=== PATIENT | male | born 1955 | race Caucasian/White ===

== ENCOUNTER 2024-09-16 20:01 | Inpatient (IN) | payer BC, MEDICARE ==
[2024-09-16] MEDS ORDERED: NALOXONE 0.4 MG/ML 1 ML VIAL IV PRN (20:24)
--- NOTE | 2024-09-16 20:24 | ED ---
General Adult HPI - General Chief complaint: Abdominal Pain Stated complaint: Abd Pain Time Seen by Provider: 09/16/24 20:03 Source: patient, EMS, RN notes reviewed Mode of arrival: EMS Limitations: no limitations - History of Present Illness Initial comments: Patient is a 68-year-old male presenting to the emergency department with concerns for abdominal pain. Patient was transferred from [facility] with concerns for appendicitis. CT scan there showed appendicitis. Patient was given Zosyn. Patient states onset of symptoms was yesterday morning. Decreased appetite. Last oral intake was banana this morning. No nausea or vomiting. No fever at home. Discomfort is more right-sided more lower abdomen - Related Data Allergies Allergy/AdvReac Type Severity Reaction Status Date / Time No Known Allergies Allergy Verified 09/16/24 20:12 Review of Systems ROS Statement: Those systems with pertinent positive or pertinent negative responses have been documented in the HPI. ROS Other: All systems not noted in ROS Statement are negative. Constitutional: Reports: as per HPI Eyes: Denies: eye pain ENT: Denies: ear pain Gastrointestinal: Reports: as per HPI, abdominal pain Musculoskeletal: Denies: back pain Past Medical History Past Medical History: Hypertension Additional Past Medical History / Comment(s): gout History of Any Multi-Drug Resistant Organisms: None Reported Past Surgical History: Cholecystectomy Additional Past Surgical History / Comment(s): skull fracture repair, Past Psychological History: No Psychological Hx Reported Smoking Status: Never smoker Past Alcohol Use History: Rare Past Drug Use History: None Reported General Exam Limitations: no limitations General appearance: alert, in no apparent distress Head exam: Present: normocephalic Eye exam: Present: normal appearance Neck exam: Present: normal inspection Respiratory exam: Present: normal lung sounds bilaterally Cardiovascular Exam: Present: regular rate, normal rhythm GI/Abdominal exam: Present: soft, tenderness (Moderate tenderness right lower abdomen). Absent: distended, rebound, rigid Extremities exam: Present: normal inspection. Absent: pedal edema, calf tenderness Neurological exam: Present: alert Psychiatric exam: Present: normal affect, normal mood Skin exam: Present: normal color Course Vital Signs 09/16/24 20:03 Temperature 100.0 F H Pulse Rate 82 Respiratory 18 Rate Blood Pressure 140/84 O2 Sat by Pulse 94 L Oximetry Medical Decision Making - Medical Decision Making Was pt. sent in by a medical professional or institution (Dr., PA, MEDICAL LAB TECH INSTRUCTOR, urgent care, hospital, or long term...) When possible be specific @ -Patient was sent from [place] Did you speak to anyone other than the patient for history (EMS, parent, family, police, friend...)? What history was obtained from this source @ -Transferring physician Did you review nursing and triage notes (agree or disagree)? Why? @ -I reviewed and agree with nursing and triage notes Were old charts reviewed (outside hosp., previous admission, EMS record, old EKG, old radiological studies, urgent care reports/EKG's, long term records)? Report findings @ -Chart reviewed from [place] Differential Diagnosis (chest pain, altered mental status, abdominal pain women, abdominal pain men, vaginal bleeding, weakness, fever, dyspnea, syncope, headache, dizziness, GI bleed, back pain, seizure, CVA, palpatations, mental health, musculoskeletal)? @ -Differential Abdominal Pain Men: Appendicitis, cholecystitis, diverticulosis, ischemic bowel, pancreatitis, hepatitis, UTI, gastroenteritis, AAA, incarcerated hernia, bowel obstruction, constipation, inflammatory bowel, hepatitis, peptic ulcer disease, splenic infarction, perforated viscus, testicular torsion, this is not meant to be an all-inclusive list EKG interpreted by me (3pts min.). @ -As above X-rays interpreted by me (1pt min.). @ -None done CT interpreted by me (1pt min.). @ -None done U/S interpreted by me (1pt. min.). @ -None done What testing was considered but not performed or refused? (CT, X-rays, U/S, labs)? Why? @ -None What meds were considered but not given or refused? Why? @ -None Did you discuss the management of the patient with other professionals (professionals i.e. , SYDNEE, MEDICAL LAB TECH INSTRUCTOR, lab, RT, psych nurse, nephrology social worker, manager flight, teacher, field health officer, mental health case manager)? Give summary @ -Case discussed with Dr. Weber who will admit covering surgical call Was smoking cessation discussed for >3mins.? @ -No Was critical care preformed (if so, how long)? @ -No Were there social determinants of health that impacted care today? How? (Homelessness, low income, unemployed, alcoholism, drug addiction, transportation, low edu. Level, literacy, decrease access to med. care, mcc, rehab)? @ -No Was there de-escalation of care discussed even if they declined (Discuss DNR or withdrawal of care, Hospice)? DNR status @ -No What co-morbidities impacted this encounter? (DM, HTN, Smoking, COPD, CAD, Cancer, CVA, ARF, Chemo, Hep., AIDS, mental health diagnosis, sleep apnea, morbid obesity)? @ -None Was patient admitted / discharged? Hospital course, mention meds given and route, prescriptions, significant lab abnormalities, going to OR and other pertinent info. @ -Patient presents with abdominal discomfort, CT scan positive. Patient will be admitted to surgery. Patient updated Undiagnosed new problem with uncertain prognosis? @ -No Drug Therapy requiring intensive monitoring for toxicity (Heparin, Nitro, Insulin, Cardizem)? @ -No Were any procedures done? @ -No Diagnosis/symptom? @ -Acute appendicitis Acute, or Chronic, or Acute on Chronic? @ -Acute Uncomplicated (without systemic symptoms) or Complicated (systemic symptoms)? @ -Default Side effects of treatment? @ -No Exacerbation, Progression, or Severe Exacerbation? @ -No Poses a threat to life or bodily function? How? (Chest pain, [place], [place], pneumonia, PE, COPD, DKA, ARF, appy, cholecystitis, CVA, Diverticulitis, Homicidal, Suicidal, threat to staff... and all critical care pts) @ -No Disposition Clinical Impression: Acute appendicitis Disposition: ADMITTED IP TO THIS HOSP Is patient prescribed a controlled substance at d/c from ED?: No Referrals: Tanner Hannon MD [Primary Care Provider] - 1-2 days Time of Disposition: 20:24
[2024-09-16] MEDS: SODIUM CHLORIDE 0.9% 1,000 ML IV SCH (21:00)
[2024-09-16] MEDS: PANTOPRAZOLE 40 MG/10 ML VIAL IV SCH (21:01)
[2024-09-16] MEDS: ACETAMINOPHEN IV (For NPO) 1,000 MG in EMPTY BAG 1 BAG IVPB STA (21:03)
[2024-09-17] MEDS: PIPERACILLIN-TAZOBACTAM 3.375 GM in SODIUM CHLORIDE 0.9% 100 ML IVPB SCH (01:32)
[2024-09-17] MEDS: HYDROmorphone 0.5 MG/0.5 ML SYRINGE IVP PRN (03:31)
[2024-09-17] MEDS: HYDROmorphone 1 MG/ML 1 ML SYRINGE IVP STA (04:50)
[2024-09-17 08:35] LABS: Basophils # (A) 0.02 10*3/uL (0.00-0.10); Basophils % (A) 0.3 %; HCT 45.8 % (39.6-50.0); HGB 15.8 g/dL (13.0-17.0); Immature Platelet Fraction 2.1 % (1.1-6.1); Lymphocytes # (A) 0.27 10*3/uL (0.90-5.00); Lymphocytes % (A) 4.2 %; MCH 32.6 pg (27.0-32.0); MCHC 34.5 g/dL (32.0-37.0); MCV 94.6 fL (80.0-97.0); Mean Platelet Volume 9.3 fL (9.5-12.2); Monocytes # (A) 0.34 10*3/uL (0.20-1.00); Monocytes % (A) 5.3 %; Neutrophils # (A) 5.75 10*3/uL (1.80-7.70); Neutrophils % (A) 89.9 %; Platelet Count 148 10*3/uL (140-440); RBC 4.84 10*6/uL (4.40-5.60); RDW 12.1 % (11.5-14.5)
[2024-09-17] MEDS: HYDROmorphone 1 MG/ML 1 ML SYRINGE IVP PRN (08:40)
[2024-09-17 08:46] LABS: African American GFR (CKD) 78 (>60 ml/min/1.73 sqM); Anion Gap 10 mmol/L; Blood Urea Nitrogen 29 mg/dL (9-20); Calcium 9.1 mg/dL (8.4-10.2); Carbon Dioxide 25 mmol/L (22-30); Chloride 106 mmol/L (98-107); Glucose 124 mg/dL (74-99); Non-African American GFR(CKD) 68 (>60 ml/min/1.73 sqM); Potassium 4.2 mmol/L (3.5-5.1); Sodium 141 mmol/L (137-145)
[2024-09-17] MEDS: IV FLUID CONTINUATION 1,000 ML IV ONE (09:27)
[2024-09-17] MEDS: DEXAMETHASONE SOD PHOSPHATE 4 MG/ML 1 ML VIAL IVP STA (09:59)
[2024-09-17] MEDS: ONDANSETRON 4 MG/2 ML VIAL IVP PRN (09:59)
[2024-09-17] MEDS: HEPARIN SODIUM,PORCINE 5,000 UNIT/ML 1 ML VIAL SQ STA (10:06)
--- NOTE | 2024-09-17 10:17 | P.GSHP ---
History of Present Illness H&P Date: 09/17/24 Chief Complaint: Acute appendicitis This 68-year-old male who was re transferred from [facility]. Patient was diagnosed with acute appendicitis. Patient has complaints of right lower quadrant pain for 24 hours. Past Medical History Past Medical History: Hypertension Additional Past Medical History / Comment(s): gout History of Any Multi-Drug Resistant Organisms: None Reported Past Surgical History: Cholecystectomy Additional Past Surgical History / Comment(s): skull fracture repair, Past Anesthesia/Blood Transfusion Reactions: No Reported Reaction Past Psychological History: No Psychological Hx Reported Smoking Status: Never smoker Past Alcohol Use History: Rare Past Drug Use History: None Reported Medications and Allergies Home Medications Medication Instructions Recorded Confirmed Type Collagen Capsule(Unknown Dose) 1 cap PO HS 09/16/24 09/16/24 History Fish Oil 2700mg 2 cap PO HS 09/16/24 09/16/24 History Multivit-Min/FA/Lycopen/Lutein 1 tab PO DAILY 09/16/24 09/16/24 History [Centrum Silver Tablet] Nabumetone [Relafen] 750 mg PO BID 09/16/24 09/16/24 History Super Beta Prostate 1 tab PO HS 09/16/24 09/16/24 History Tamsulosin [Flomax] 0.4 mg PO HS 09/16/24 09/16/24 History Total Beets 2 tab PO BID 09/16/24 09/16/24 History Turmeric Root Extract [Turmeric] 500 mg PO HS 09/16/24 09/16/24 History allopurinoL [Zyloprim] 300 mg PO DAILY 09/16/24 09/16/24 History amLODIPine BES/OLMESARTAN MED 1 tab PO BID 09/16/24 09/16/24 History [amLODIPine BES/OLMESARTAN MED 5-20 mg] Allergies Allergy/AdvReac Type Severity Reaction Status Date / Time No Known Allergies Allergy Verified 09/17/24 09:29 Surgical - Exam Vital Signs Temp Pulse Resp BP Pulse Ox 100.0 F H 82 18 140/84 94 L 09/16/24 20:03 09/16/24 20:03 09/16/24 20:03 09/16/24 20:03 09/16/24 20:03 - General well developed, well nourished, no distress - Eyes PERRL - ENT normal pinna - Neck no masses - Respiratory normal expansion - Cardiovascular Rhythm: regular - Abdomen Abdomen: soft, non tender Results - Labs 09/17/24 08:21 09/17/24 08:21 Abnormal Lab Results - Last 24 Hours (Table) 09/17/24 09/17/24 Range/Units 08:21 08:21 MCH 32.6 H (27.0-32.0) pg MPV 9.3 L (9.5-12.2) fL Lymphocytes # 0.27 L (0.90-5.00) 10*3/uL Eosinophils # 0.00 L (0.04-0.35) 10*3/uL BUN 29 H (9-20) mg/dL Glucose 124 H (74-99) mg/dL Diabetes panel 09/17/24 Range/Units 08:21 Sodium 141 (137-145) mmol/L Potassium 4.2 (3.5-5.1) mmol/L Chloride 106 (98-107) mmol/L Carbon Dioxide 25 (22-30) mmol/L BUN 29 H (9-20) mg/dL Creatinine 1.11 (0.66-1.25) mg/dL Glucose 124 H (74-99) mg/dL Calcium 9.1 (8.4-10.2) mg/dL Calcium panel 09/17/24 Range/Units 08:21 Calcium 9.1 (8.4-10.2) mg/dL Pituitary panel 09/17/24 Range/Units 08:21 Sodium 141 (137-145) mmol/L Potassium 4.2 (3.5-5.1) mmol/L Chloride 106 (98-107) mmol/L Carbon Dioxide 25 (22-30) mmol/L BUN 29 H (9-20) mg/dL Creatinine 1.11 (0.66-1.25) mg/dL Glucose 124 H (74-99) mg/dL Calcium 9.1 (8.4-10.2) mg/dL Adrenal panel 09/17/24 Range/Units 08:21 Sodium 141 (137-145) mmol/L Potassium 4.2 (3.5-5.1) mmol/L Chloride 106 (98-107) mmol/L Carbon Dioxide 25 (22-30) mmol/L BUN 29 H (9-20) mg/dL Creatinine 1.11 (0.66-1.25) mg/dL Glucose 124 H (74-99) mg/dL Calcium 9.1 (8.4-10.2) mg/dL Assessment and Plan Assessment: Acute appendicitis. Patient will be scheduled for laparoscopic appendectomy
[2024-09-17] MEDS ORDERED: ePHEDrine 50 MG/ML 1 ML VIAL ONE (10:19)
[2024-09-17] MEDS ORDERED: MIDAZOLAM 2 MG/2 ML VIAL ONE (10:19)
[2024-09-17] MEDS ORDERED: SUCCINYLCHOLINE CHLORIDE 200 MG/10 ML VIAL IV ONE (10:19)
[2024-09-17] MEDS ORDERED: KETOROLAC 15 MG/ML 1 ML VIAL ONE (10:19)
[2024-09-17] MEDS ORDERED: PHENYLEPHRINE 10 MG/ML VIAL ONE (10:19)
[2024-09-17] MEDS ORDERED: NEOSTIGMINE 1 MG/ML 10 ML VIAL ONE (10:19)
[2024-09-17] MEDS ORDERED: PROPOFOL 10 MG/ML 20 ML VIAL IV ONE (10:19)
[2024-09-17] MEDS ORDERED: ROCURONIUM 10 MG/ML (5 ML VIAL) IV ONE (10:19)
[2024-09-17] MEDS ORDERED: LIDOCAINE 1% INJ 10MG/ML (20 ML MDV) ONE (10:19)
[2024-09-17] MEDS ORDERED: fentaNYL (PF) 50 MCG/ML 2 ML AMP ONE (10:19)
[2024-09-17] MEDS ORDERED: GLYCOPYRROLATE 0.2 MG/ML 2 ML VIAL ONE (10:19)
[2024-09-17] MEDS: LIDOCAINE 1%-EPI 1:100,000 20 ML VIAL SQ ONE (10:43)
--- NOTE | 2024-09-17 11:09 | P.OP ---
Date of Procedure: 09/17/24 Preoperative Diagnosis: Acute appendicitis Postoperative Diagnosis: Acute ruptured appendicitis Procedure(s) Performed: Laparoscopic appendectomy Anesthesia: CHITO Surgeon: Arturo Valle Estimated Blood Loss (ml): 5 Pathology: other (Appendix) Condition: stable Disposition: PACU Description of Procedure: The patient's placed on the operating table in the supine position. The patient received general anesthesia. The abdomen was prepped and draped in the usual sterile fashion. The skin was anesthetized 1% local Xylocaine at the trocar sites. Using an 11 blade the skin was incised at the umbilicus. The umbilicus was grasped with a Misael clamp and then a Veress needle was placed into the peritoneal cavity. Position of the Veress needle was confirmed with positive drop test. After adequate insufflation a 5 mm trocar was placed into the peritoneal cavity. The abdomen was further insufflated. And then the laparoscope was placed in the peritoneal cavity. Next a 5 mm trocar was placed in the midline suprapubic position. And then a 10 mm trocar was placed in the midline epigastric position. The patient was rotated with the right side up and in Trendelenburg. The appendix was visualized. The appendix appeared to be inflamed. There was evidence of patchy necrosis of the appendix. The appendix was grasped and then using the Harmonic scissors the mesoappendix was divided. A PDS Endoloop was then placed around the base of the appendix. And then the appendix was divided using Harmonic scissors. The appendix was placed into an Endo Catch and brought out through the 10 mm trocar site. The abdomen was irrigated. There is no bleeding seen. The trochars withdrawn. The skin was closed interrupted 3-0 Monocryl suture. Dermabond dressing was applied. Patient was sent to recovery room in stable condition.
[2024-09-17] MEDS: amLODIPine 5 MG TAB PO SCH (21:10)
[2024-09-17] MEDS: LOSARTAN 25 MG TAB PO SCH (21:10)
[2024-09-17] MEDS: TAMSULOSIN 0.4 MG CAP.ER.24H PO SCH (21:10)
[2024-09-17] MEDS: HEPARIN SODIUM,PORCINE 5,000 UNIT/ML 1 ML VIAL SQ SCH (21:11)
--- NOTE | 2024-09-17 22:42 | P.CONS ---
History of Present Illness - Reason for Consult Consult date: 09/17/24 Perforated appendicitis Requesting physician: Arturo Valle - Chief Complaint Abdominal pain x 3 days - History of Present Illness Patient is a 68-year-old male with a past medical history negative for hypertension and gout presenting to the hospital with right lower quadrant abdominal pain that the pain was going on for the last 2 to 3 days patient pain was mostly right lower quadrant area colicky and sharp in nature that has progressively got worse for the patient present to the hospital. Today associate nausea but no vomiting denies any diarrhea or constipation denies high-grade fever on presentation to the hospital he did have low-grade fever 100 F patient was not tachycardic but not hypotensive mildly hypoxic currently on 4 L nasal cannula oxygen patient did have a white count of 6.40 creatinine is 1.[address] a [address] abdominal pelvis done at [facility] that was suggestive of appendicitis for the patient was given a dose of Zosyn subsequently transferred to [facility] ER patient was taken to the OR this morning and noticed to have perforated appendicitis status post laparoscopic appendectomy postprocedure patient has been admitted to hospital infectious disease was consulted for perforated appendicitis Review of Systems Positive point and negatives has been mentioned in the HPI, complete review of systems was performed and all other systems are negative Past Medical History Past Medical History: Hypertension Additional Past Medical History / Comment(s): gout History of Any Multi-Drug Resistant Organisms: None Reported Past Surgical History: Cholecystectomy Additional Past Surgical History / Comment(s): skull fracture repair, Past Anesthesia/Blood Transfusion Reactions: No Reported Reaction Past Psychological History: No Psychological Hx Reported Smoking Status: Never smoker Past Alcohol Use History: Rare Past Drug Use History: None Reported Medications and Allergies Home Medications Medication Instructions Recorded Confirmed Type Collagen Capsule(Unknown Dose) 1 cap PO HS 09/16/24 09/16/24 History Fish Oil 2700mg 2 cap PO HS 09/16/24 09/16/24 History Multivit-Min/FA/Lycopen/Lutein 1 tab PO DAILY 09/16/24 09/16/24 History [Centrum Silver Tablet] Nabumetone [Relafen] 750 mg PO BID 09/16/24 09/16/24 History Super Beta Prostate 1 tab PO HS 09/16/24 09/16/24 History Tamsulosin [Flomax] 0.4 mg PO HS 09/16/24 09/16/24 History Total Beets 2 tab PO BID 09/16/24 09/16/24 History Turmeric Root Extract [Turmeric] 500 mg PO HS 09/16/24 09/16/24 History allopurinoL [Zyloprim] 300 mg PO DAILY 09/16/24 09/16/24 History amLODIPine BES/OLMESARTAN MED 1 tab PO BID 09/16/24 09/16/24 History [amLODIPine BES/OLMESARTAN MED 5-20 mg] Allergies Allergy/AdvReac Type Severity Reaction Status Date / Time No Known Allergies Allergy Verified 09/17/24 10:18 Physical Exam Vitals: Vital Signs Temp Pulse Pulse Pulse Pulse Resp BP 09/17/24 12:17 97.8 F 79 16 09/17/24 12:01 98 16 09/17/24 11:45 86 16 09/17/24 11:30 101 H 16 09/17/24 11:11 97.8 F 98 16 09/17/24 09:34 99.6 F 87 16 09/17/24 07:00 98.8 F 88 19 09/17/24 04:56 75 18 09/17/24 02:00 98.1 F 80 17 09/17/24 00:25 98.2 F 73 17 112/73 09/16/24 20:03 100.0 F H 82 18 140/84 BP BP Pulse Ox 09/17/24 12:17 97/50 94 L 09/17/24 12:01 94/56 94 L 09/17/24 11:45 107/69 99 09/17/24 11:30 113/76 99 09/17/24 11:11 124/82 92 L 09/17/24 09:34 112/69 92 L 09/17/24 07:00 116/70 93 L 09/17/24 04:56 123/78 09/17/24 02:00 111/70 94 L 09/17/24 00:25 98 09/16/24 20:03 94 L Intake and Output 09/16/24 09/17/24 09/17/24 22:59 06:59 14:59 Intake Total 200 Output Total 5 Balance 195 Intake: IV 200 Output: Estimated Blood Loss 5 Other: # Voids 2 Weight 140.614 kg 140.614 kg 140.614 kg GENERAL DESCRIPTION: Elderly male lying in bed, no distress. No tachypnea or accessory muscle of respiration use. HEENT: Shows Pallor , no scleral icterus. Oral mucous membrane is dry. NECK: Trachea central, no thyromegaly. LUNGS: Unlabored breathing. Clear to auscultation anteriorly. No wheeze or crackle. HEART: S1, S2, regular rate and rhythm. No loud murmur ABDOMEN: Soft, mild right-sided tenderness EXTREMITIES: No edema of feet. SKIN: No rash, no masses palpable. NEUROLOGICAL: The patient is awake, alert, oriented x3, mood and affect normal. Results CBC & Chem 7: 09/17/24 08:21 09/17/24 08:21 Labs: Abnormal Lab Results - Last 24 Hours (Table) 09/17/24 09/17/24 Range/Units 08:21 08:21 MCH 32.6 H (27.0-32.0) pg MPV 9.3 L (9.5-12.2) fL Lymphocytes # 0.27 L (0.90-5.00) 10*3/uL Eosinophils # 0.00 L (0.04-0.35) 10*3/uL BUN 29 H (9-20) mg/dL Glucose 124 H (74-99) mg/dL Assessment and Plan (1) Perforated appendicitis Current Visit: Yes Status: Acute Code(s): K35.32 - AC APPENDICITIS W PERF, LOC PERITONITIS, & GANGR, W/O ABSCS SNOMED Code(s): 62663132 (2) Peritonitis Current Visit: Yes Status: Acute Code(s): K65.9 - PERITONITIS, UNSPECIFIED SNOMED Code(s): 72981405 Plan: 1patient presented to hospital with abdominal pain and this patient has been diagnosed with acute perforated appendicitis status post laparoscopic appendectomy and will need to cover for enteric gram-negative both aerobes and anaerobes. 2patient will be treated with Zosyn 3.375 g every 8 hours Question concern answered We will follow on clinical condition and cultures to further adjust medication if needed Thank you for this consultation we will follow the patient along with you Dictation was produced using [employer] dictation software. please excuse any grammatical, word or spelling errors. Time with Patient: Greater than 30
--- NOTE | 2024-09-17 22:48 | CONS ---
CONSULTATION REASON FOR CONSULTATION: Advice regarding hypertension and gout, request by Dr. Valle. HISTORY OF PRESENT ILLNESS: This 68-year-old gentleman with a past history hypertension and gout, underwent laparoscopic appendectomy for acute ruptured appendicitis by Dr. Valle. There is no history of fever or rigors. No headache, loss of consciousness or seizures. The patient has some postoperative cough at this time. PAST MEDICAL HISTORY: Hypertension, gout. Rest of the history and chart is also reviewed. HOME MEDICATIONS: Reviewed include amlodipine. Doses and rest of medications reviewed. ALLERGIES: None. FAMILY HISTORY: No history of heart disease or strokes in the family. SOCIAL HISTORY: No history of smoking. REVIEW OF SYSTEMS: Could not be taken as the patient is slightly drowsy. PHYSICAL EXAMINATION: VITAL SIGNS: Pulse 75, blood pressure 160/70, and respirations 20. HEENT: Conjunctivae normal. NECK: No jugular venous distention. CARDIOVASCULAR: S1, S2. RESPIRATIONS: Breath sounds diminished at the bases. A few scattered rhonchi. ABDOMEN: Soft, obese, status post surgery. nervous system: No focal deficit. LABORATORY DATA: White count 6.4. Rest of the labs are noted. ASSESSMENT: 1. Status post laparoscopic appendectomy for acute ruptured appendicitis. 2. History of hypertension. 3. History of gout. 4. History of cholecystectomy. RECOMMENDATIONS: This 68-year-old gentleman presented with multiple complex medical issues. We will monitor the patient closely, resume the home medications. Monitor blood pressure closely, broad-spectrum IV antibiotics. DVT prophylaxis. We will monitor the patient closely. The patient was transferred from [facility]. I would recommend chest x-ray baseline. Incentive spirometry. See orders for details. MMODL / IJN: [id number] /
--- NOTE | 2024-09-18 07:47 | XR ---
EXAMINATION TYPE: XR chest 1V portable DATE OF EXAM: 09/18/2024 6:40 AM COMPARISON: None. CLINICAL INDICATION: Male, 69 years old with history of chf, TECHNIQUE: XR chest 1V portable view(s) obtained. FINDINGS: The heart size is enlarged. The pulmonary vasculature is normal. Minimal right pleural effusion may be present. Lungs otherwise appear clear. IMPRESSION: 1. Cardiomegaly. 2. Small right pleural effusion [facility], , 09/18/2024 7:44 AM
[2024-09-18] MEDS: allopurinoL 300 MG TAB PO SCH (08:26)
[2024-09-18] MEDS: MELOXICAM 7.5 MG TAB PO SCH (08:27)
[2024-09-18 08:46] LABS: BUN/Creat Ratio 25.18 Ratio (12.00-20.00); Blood Urea Nitrogen 27.7 mg/dL (9.0-27.0); Carbon Dioxide 22.2 mmol/L (21.6-31.8); Chloride 104 mmol/L (96-109); Glucose 123 mg/dL (70-110); Potassium 4.3 mmol/L (3.5-5.5); Sodium 138 mmol/L (135-145)
[2024-09-18 08:47] LABS: ALT 57 U/L (10-49); AST 38 U/L (14-35); Albumin 3.6 g/dL (3.8-4.9); Alkaline Phosphatase 62 U/L (41-126); Calcium 8.8 mg/dL (8.7-10.3); Globulin 2.4 g/dL (1.6-3.3); Total Bilirubin 2.3 mg/dL (0.3-1.2)
[2024-09-18] MEDS ORDERED: IPRATROPIUM-ALBUTEROL 3 ML NEB INHALATION PRN (08:59)
[2024-09-18] MEDS: HYDROcodone/APAP 5-325MG 1 EACH TAB PO PRN (11:00)
[2024-09-18 11:46] LABS: HCT 41.1 % (39.6-50.0); MCH 32.6 pg (27.0-32.0); MCHC 34.1 g/dL (32.0-37.0); MCV 95.8 fL (80.0-97.0); Mean Platelet Volume 10.3 fL (9.5-12.2); Platelet Count 171 10*3/uL (140-440); RBC 4.29 10*6/uL (4.40-5.60); RDW 12.1 % (11.5-14.5); WBC 9.15 10*3/uL (4.50-10.00)
[2024-09-18 12:43] LABS: Lymphocytes # (M) 0.46 k/uL (1.0-4.8); Monocytes # (M) 0.37 k/uL (0-1.0); Neutrophils # (M) 8.33 k/uL (1.3-7.7); Neutrophils % (M) 91 %; Nucleated Red Blood Cells 0 /100 WBC (0-0); Total Cells Counted 100
--- NOTE | 2024-09-18 13:28 | P.PN ---
Subjective Progress Note Date: 09/18/24 SURGICAL PROGRESS NOTE CHIEF COMPLAINT: Ruptured appendicitis HISTORY OF PRESENT ILLNESS: Patient is postop day #1 status post laparoscopic appendectomy. Patient does report abdominal pain. Denies any nausea or vomiting. Denies any flatus. Patient reports urinating without difficulty. Afebrile. He is on 4 L of oxygen. WBC is 9.15 total bilirubin is 2.3 AST 38 ALT 57 alk phos 62 PHYSICAL EXAM: VITAL SIGNS: Reviewed. GENERAL: Well-developed in no acute distress. ABDOMEN: Soft. Mildly distended. Tender at incision sites. Incision sites clean dry and intact. NEUROLOGIC: Alert and oriented. Cranial nerves II through XII grossly intact. ASSESSMENT: 1. Acute ruptured appendicitis 2. Atelectasis 3. Elevated total bilirubin PLAN: - Continue IV antibiotics - Continue clear liquid diet - Continue pain management - Encourage patient to ambulate - Encourage patient to use incentive spirometer - Repeat labs in a.m. - DVT prophylaxis subcu heparin Physician Tooling Supervisor note has been reviewed by physician. Signing provider agrees with the documented findings, assessment, and plan of care. Objective - Vital Signs Vital signs: Vital Signs Temp 98.5 F 09/18/24 07:00 Pulse 67 09/18/24 07:00 Resp 15 09/18/24 07:00 BP 115/68 09/18/24 07:00 Pulse Ox 95 09/18/24 07:00 FiO2 Intake & Output 09/17/24 09/18/24 09/18/24 18:59 06:59 18:59 Intake Total 440 540 Output Total 205 535 40 Balance 235 5 -40 Weight 140.614 kg Intake: IV 200 Oral 240 540 Output: Drainage 35 40 Abdomen 35 40 Urine 200 500 Estimated Blood Loss 5 Other: # Voids 3 - Labs CBC & Chem 7: 09/18/24 11:01 09/18/24 04:43 Labs: Abnormal Lab Results - Last 24 Hours (Table) 09/18/24 09/18/24 Range/Units 04:43 11:01 RBC 4.29 L (4.40-5.60) 10*6/uL MCH 32.6 H (27.0-32.0) pg Neutrophils # (Manual) 8.33 H (1.3-7.7) k/uL Lymphocytes # (Manual) 0.46 L (1.0-4.8) k/uL BUN 27.7 H (9.0-27.0) mg/dL BUN/Creatinine Ratio 25.18 H (12.00-20.00) Ratio Glucose 123 H (70-110) mg/dL Total Bilirubin 2.3 H (0.3-1.2) mg/dL AST 38 H (14-35) U/L ALT 57 H (10-49) U/L Total Protein 6.0 L (6.2-8.2) g/dL Albumin 3.6 L (3.8-4.9) g/dL Albumin/Globulin Ratio 1.50 L (1.60-3.17) Ratio
[2024-09-18] MEDS: IPRATROPIUM-ALBUTEROL 3 ML NEB INHALATION SCH (15:56)
[2024-09-18] MEDS ORDERED: DOCUSATE 100 MG CAP PO PRN (20:23)
[2024-09-18] MEDS: DOCUSATE 100 MG CAP PO SCH (21:46)
--- NOTE | 2024-09-19 06:06 | PN ---
PROGRESS NOTE DATE OF SERVICE: 09/18/2024 SUBJECTIVE: This is a 69-year-old gentleman admitted after laparoscopic appendectomy for acute appendicitis, ruptured. It is being closely monitored at this time. The patient is on broad spectrum IV antibiotics. The chest x-ray which I reviewed personally showed some atelectasis. OBJECTIVE: VITAL SIGNS: On exam, pulse is 67, blood pressure 150/60, respirations 15. HEENT: Conjunctivae normal. CARDIOVASCULAR: S1 and S2. RESPIRATIONS: Breath sounds diminished at bases. No rhonchi, no crackles. ABDOMEN: Soft. LABS: Reviewed. ASSESSMENT: 1. Status post laparoscopic appendectomy for acute ruptured appendicitis. 2. Bilateral atelectasis, right more the left. 3. Hypertension. 4. History of gout. 5. History of cholecystectomy. 6. Elevated AST and ALT. RECOMMENDATIONS: I recommend to continue current medications, symptomatic management. Otherwise, I recommended continue the broad-spectrum IV antibiotics. Add bronchodilators. Repeat labs in the morning. Incentive spirometry. DVT prophylaxis. We will follow the patient closely with you. MMODL / IJN: [id number] /
[2024-09-19 08:37] LABS: ALT 40 U/L (10-49); AST 24 U/L (14-35); Albumin 3.2 g/dL (3.8-4.9); Albumin/Globulin Ratio 1.39 Ratio (1.60-3.17); Alkaline Phosphatase 57 U/L (41-126); BUN/Creat Ratio 24.57 Ratio (12.00-20.00); Blood Urea Nitrogen 34.4 mg/dL (9.0-27.0); Calcium 8.7 mg/dL (8.7-10.3); Carbon Dioxide 26.8 mmol/L (21.6-31.8); Chloride 101 mmol/L (96-109); Globulin 2.3 g/dL (1.6-3.3); Glucose 127 mg/dL (70-110); Potassium 4.3 mmol/L (3.5-5.5); Sodium 137 mmol/L (135-145); Total Bilirubin 1.4 mg/dL (0.3-1.2); Total Protein 5.5 g/dL (6.2-8.2)
[2024-09-19 08:52] LABS: Basophils # (A) 0.01 X 10*3/uL (0.00-0.10); Basophils % (A) 0.1 %; Eosinophils # (A) 0.11 X 10*3/uL (0.04-0.35); Eosinophils % (A) 1.1 %; HCT 41.6 % (39.6-50.0); HGB 13.8 g/dL (13.0-17.0); Lymphocytes # (A) 0.92 X 10*3/uL (0.90-5.00); Lymphocytes % (A) 9.2 %; MCH 31.9 pg (27.0-32.0); MCHC 33.2 g/dL (32.0-37.0); MCV 96.3 FL (80.0-97.0); Mean Platelet Volume 10.5 FL (9.5-12.2); Monocytes # (A) 0.63 X 10*3/uL (0.20-1.00); Monocytes % (A) 6.3 %; NRBC Per 100 WBC 0 X 10*3/uL (0.00-0.01); Neutrophils # (A) 8.25 X 10*3/uL (1.80-7.70); Platelet Count 178 X 10*3/uL (140-440); RBC 4.32 X 10*6/uL (4.40-5.60); RDW 12.1 % (11.5-14.5); WBC 9.95 X 10*3/uL (4.50-10.00)
--- NOTE | 2024-09-19 12:43 | P.PN ---
Subjective Progress Note Date: 09/18/24 Principal diagnosis: Reason for follow-up is perforated appendicitis/peritonitis Patient is a 68-year-old male with a past medical history negative for hypertension and gout presenting to the hospital with right lower quadrant abdominal pain patient has been diagnosed with perforated appendicitis status post laparoscopic appendectomy. On today's evaluation that is 09/18/2024,the patient denies any fever or any chills, patient is breathing comfortably on 2 L nasal oxygen r, the patient denies chest pain shortness of breath and no significant cough, patient denies nausea vomiting and abdominal pain is currently controlled Patient did have white count 9.15 Objective - Vital Signs Vital signs: Vital Signs Temp 99.2 F 09/18/24 14:32 Pulse 79 09/18/24 14:32 Resp 17 09/18/24 14:32 BP 103/58 09/18/24 14:32 Pulse Ox 93 L 09/18/24 14:32 FiO2 Intake & Output 09/17/24 09/18/24 09/18/24 18:59 06:59 18:59 Intake Total 440 540 Output Total 205 535 40 Balance 235 5 -40 Weight 140.614 kg Intake: IV 200 Oral 240 540 Output: Drainage 35 40 Abdomen 35 40 Urine 200 500 Estimated Blood Loss 5 Other: # Voids 3 4 - Exam GENERAL DESCRIPTION: An elderly male up in the chair in no distress RESPIRATORY SYSTEM: Unlabored breathing , decreased breath sounds at bases HEART: S1 S2 regular rate and rhythm , ABDOMEN: Soft , mild distention no tenderness EXTREMITIES: No edema feet - Labs CBC & Chem 7: 09/19/24 05:20 09/19/24 05:20 Labs: Abnormal Lab Results - Last 24 Hours (Table) 09/18/24 09/18/24 Range/Units 04:43 11:01 RBC 4.29 L (4.40-5.60) 10*6/uL MCH 32.6 H (27.0-32.0) pg Neutrophils # (Manual) 8.33 H (1.3-7.7) k/uL Lymphocytes # (Manual) 0.46 L (1.0-4.8) k/uL BUN 27.7 H (9.0-27.0) mg/dL BUN/Creatinine Ratio 25.18 H (12.00-20.00) Ratio Glucose 123 H (70-110) mg/dL Total Bilirubin 2.3 H (0.3-1.2) mg/dL AST 38 H (14-35) U/L ALT 57 H (10-49) U/L Total Protein 6.0 L (6.2-8.2) g/dL Albumin 3.6 L (3.8-4.9) g/dL Albumin/Globulin Ratio 1.50 L (1.60-3.17) Ratio Assessment and Plan (1) Perforated appendicitis Current Visit: Yes Status: Acute Code(s): K35.32 - AC APPENDICITIS W PERF, LOC PERITONITIS, & GANGR, W/O ABSCS SNOMED Code(s): 51365075 (2) Peritonitis Current Visit: Yes Status: Acute Code(s): K65.9 - PERITONITIS, UNSPECIFIED SNOMED Code(s): 83756577 Plan: 1patient presented to hospital with abdominal pain and this patient has been diagnosed with acute perforated appendicitis status post laparoscopic appendectomy and will need to cover for enteric gram-negative both aerobes and anaerobes. 2patient is afebrile white count has been normal patient will be treated with Zosyn 3.375 g every 8 hours while patient encouraged to use his incentive spirometry to decrease risk of developing pneumonia and need for supplemental oxygen Family at the bedside question concern answered Dictation was produced using [employer] dictation software. please excuse any grammatical, word or spelling errors. Time with Patient: Less than 30
--- NOTE | 2024-09-19 12:44 | P.PN ---
Subjective Progress Note Date: 09/19/24 SURGICAL PROGRESS NOTE CHIEF COMPLAINT: Ruptured appendicitis HISTORY OF PRESENT ILLNESS: Patient is postop day #2 status post laparoscopic appendectomy. Patient reports he is feeling better. Pain is controlled. He did have a bowel movements and having flatus. He has been up and ambulating. Afebrile. WBC 9.95 total bilirubin is down to 1.4 LFTs normalized. PARMJIT drain 40ml serosanguineous output PHYSICAL EXAM: VITAL SIGNS: Reviewed. GENERAL: Well-developed in no acute distress. ABDOMEN: Soft. Mildly distended. Incision sites clean dry and intact. NEUROLOGIC: Alert and oriented. Cranial nerves II through XII grossly intact. ASSESSMENT: 1. Acute ruptured appendicitis 2. Atelectasis PLAN: -Advance diet to regular - Continue IV antibiotics - Continue pain management - Encourage patient to ambulate - Encourage patient to use incentive spirometer -Anticipate discharge in a.m. - DVT prophylaxis subcu heparin Physician Neonatal Icu Coordinator note has been reviewed by physician. Signing provider agrees with the documented findings, assessment, and plan of care. Objective - Vital Signs Vital signs: Vital Signs Temp 99.2 F 09/19/24 07:10 Pulse 80 09/19/24 10:13 Resp 19 09/19/24 07:10 BP 119/67 09/19/24 07:10 Pulse Ox 94 L 09/19/24 07:10 FiO2 Intake & Output 09/18/24 09/19/24 09/19/24 18:59 06:59 18:59 Intake Total 980 480 Output Total 40 360 Balance -40 620 480 Intake: IV 480 Sodium Chloride 0.9% 1, 480 000 ml @ 40 mls/hr IV . Q24H [facility] Rx#:[id number] Oral 500 480 Output: Drainage 40 60 Abdomen 40 60 Urine 300 Other: Voiding Method Toilet Toilet Urinal Urinal # Voids 4 1 - Labs CBC & Chem 7: 09/19/24 05:20 09/19/24 05:20 Labs: Abnormal Lab Results - Last 24 Hours (Table) 09/18/24 09/19/24 09/19/24 Range/Units 11:01 05:20 05:20 RBC 4.32 L (4.40-5.60) X 10*6/uL Neutrophils # 8.25 H (1.80-7.70) X 10*3/uL Neutrophils # (Manual) 8.33 H (1.3-7.7) k/uL Lymphocytes # (Manual) 0.46 L (1.0-4.8) k/uL BUN 34.4 H (9.0-27.0) mg/dL Est GFR (CKD-EPI) 54 L (>=60) BUN/Creatinine Ratio 24.57 H (12.00-20.00) Ratio Glucose 127 H (70-110) mg/dL Total Bilirubin 1.4 H (0.3-1.2) mg/dL Total Protein 5.5 L (6.2-8.2) g/dL Albumin 3.2 L (3.8-4.9) g/dL Albumin/Globulin Ratio 1.39 L (1.60-3.17) Ratio
--- NOTE | 2024-09-19 12:44 | P.PN ---
Subjective Progress Note Date: 09/19/24 Principal diagnosis: Reason for follow-up is perforated appendicitis/peritonitis Patient is a 68-year-old male with a past medical history negative for hypertension and gout presenting to the hospital with right lower quadrant abdominal pain patient has been diagnosed with perforated appendicitis status post laparoscopic appendectomy. On today's evaluation that is 09/19/2024,the patient remains to be afebrile, patient is on 2 L nasal cannula supplemental oxygen and denies any shortness of breath no chest pain or cough.Patient denies having any nausea or vomiting, abdominal pain is currently controlled did have small bowel movement. Patient white count is 9.95 creatinine is 1.4 Objective - Vital Signs Vital signs: Vital Signs Temp 99.2 F 09/19/24 07:10 Pulse 80 09/19/24 10:13 Resp 19 09/19/24 07:10 BP 119/67 09/19/24 07:10 Pulse Ox 94 L 09/19/24 07:10 FiO2 Intake & Output 09/18/24 09/19/24 09/19/24 18:59 06:59 18:59 Intake Total 980 Output Total 40 360 Balance -40 620 Intake: IV 480 Sodium Chloride 0.9% 1, 480 000 ml @ 40 mls/hr IV . Q24H [facility] Rx#:[id number] Oral 500 Output: Drainage 40 60 Abdomen 40 60 Urine 300 Other: Voiding Method Toilet Toilet Urinal Urinal # Voids 4 1 - Exam GENERAL DESCRIPTION: An elderly male up in the chair in no distress RESPIRATORY SYSTEM: Unlabored breathing , decreased breath sounds at bases HEART: S1 S2 regular rate and rhythm , ABDOMEN: Soft , mild distention no tenderness EXTREMITIES: No edema feet - Labs CBC & Chem 7: 09/19/24 05:20 09/19/24 05:20 Labs: Abnormal Lab Results - Last 24 Hours (Table) 09/18/24 09/19/24 09/19/24 Range/Units 11:01 05:20 05:20 RBC 4.29 L 4.32 L (4.40-5.60) 10*6/uL MCH 32.6 H (27.0-32.0) pg Neutrophils # 8.25 H (1.80-7.70) X 10*3/uL Neutrophils # (Manual) 8.33 H (1.3-7.7) k/uL Lymphocytes # (Manual) 0.46 L (1.0-4.8) k/uL BUN 34.4 H (9.0-27.0) mg/dL Est GFR (CKD-EPI) 54 L (>=60) BUN/Creatinine Ratio 24.57 H (12.00-20.00) Ratio Glucose 127 H (70-110) mg/dL Total Bilirubin 1.4 H (0.3-1.2) mg/dL Total Protein 5.5 L (6.2-8.2) g/dL Albumin 3.2 L (3.8-4.9) g/dL Albumin/Globulin Ratio 1.39 L (1.60-3.17) Ratio Assessment and Plan (1) Perforated appendicitis Current Visit: Yes Status: Acute Code(s): K35.32 - AC APPENDICITIS W PERF, LOC PERITONITIS, & GANGR, W/O ABSCS SNOMED Code(s): 85213485 (2) Peritonitis Current Visit: Yes Status: Acute Code(s): K65.9 - PERITONITIS, UNSPECIFIED SNOMED Code(s): 15239953 Plan: 1patient presented to hospital with abdominal pain and this patient has been diagnosed with acute perforated appendicitis status post laparoscopic appendectomy and will need to cover for enteric gram-negative both aerobes and anaerobes. 2patient is afebrile white count has been normal 3patient will be treated with Zosyn 3.375 g every 8 hours while inpatient and will transition to oral antibiotics on discharge Family at the bedside question concern answered Dictation was produced using [employer] dictation software. please excuse any grammatical, word or spelling errors. Time with Patient: Less than 30
[2024-09-19 12:45] VITALS: BMI 39.8
--- NOTE | 2024-09-19 14:30 | PN ---
PROGRESS NOTE DATE OF SERVICE: 09/19/2024 SUBJECTIVE: This 69-year-old gentleman who was admitted after laparoscopic appendectomy, closely monitored. No chest pain. No palpitation. OBJECTIVE: VITAL SIGNS: Pulse is 78, blood pressure 119/67, and respiration 19. CHEST: A few scattered rhonchi. CARDIOVASCULAR: S1 and S2. ABDOMEN: Soft, status post surgery. LABORATORY DATA: Reviewed. ASSESSMENT: 1. Status post laparoscopic appendectomy for acute ruptured appendicitis. 2. Bilateral atelectasis, right more the left. 3. Hypertension. 4. History of gout. 5. History of cholecystectomy. 6. History of elevated AST and ALT. RECOMMENDATIONS: Recommend to continue current medications and symptomatic treatment. The white count is normal. Continue the IV antibiotics. LFTs also improving. Follow with Surgery. Prognosis guarded. Further recommendations to follow. MMRACHELLL / IJN: [id number] /
[2024-09-20 08:49] LABS: Basophils # (A) 0.02 X 10*3/uL (0.00-0.10); Basophils % (A) 0.2 %; Eosinophils # (A) 0.19 X 10*3/uL (0.04-0.35); HCT 41.3 % (39.6-50.0); HGB 14.1 g/dL (13.0-17.0); Lymphocytes # (A) 0.92 X 10*3/uL (0.90-5.00); Lymphocytes % (A) 9.5 %; MCH 31.9 pg (27.0-32.0); MCHC 34.1 g/dL (32.0-37.0); MCV 93.4 FL (80.0-97.0); Mean Platelet Volume 10.5 FL (9.5-12.2); Monocytes % (A) 7.2 %; NRBC Per 100 WBC 0 X 10*3/uL (0.00-0.01); Neutrophils # (A) 7.79 X 10*3/uL (1.80-7.70); Neutrophils % (A) 80.6 %; Platelet Count 214 X 10*3/uL (140-440); RBC 4.42 X 10*6/uL (4.40-5.60); WBC 9.67 X 10*3/uL (4.50-10.00)
[2024-09-20 09:13] LABS: ALT 35 U/L (10-49); AST 23 U/L (14-35); Albumin 3.2 g/dL (3.8-4.9); Albumin/Globulin Ratio 1.28 Ratio (1.60-3.17); Alkaline Phosphatase 59 U/L (41-126); BUN/Creat Ratio 23.08 Ratio (12.00-20.00); Blood Urea Nitrogen 27.7 mg/dL (9.0-27.0); Calcium 8.6 mg/dL (8.7-10.3); Carbon Dioxide 22.5 mmol/L (21.6-31.8); Chloride 104 mmol/L (96-109); Globulin 2.5 g/dL (1.6-3.3); Glucose 160 mg/dL (70-110); Sodium 139 mmol/L (135-145); Total Bilirubin 1.1 mg/dL (0.3-1.2); Total Protein 5.7 g/dL (6.2-8.2)
--- NOTE | 2024-09-20 10:21 | P.PN ---
Subjective Progress Note Date: 09/20/24 Patient has complaints of nausea. He feels slightly bloated to. On exam vital signs were stable. Abdomen soft. There is mild abdominal distention. Status post laparoscopic appendectomy today for acute ruptured appendicitis. Patient will continue receive IV antibiotics. He mostly clear has postoperative ileus. Objective - Vital Signs Vital signs: Vital Signs Temp 98.3 F 09/20/24 07:10 Pulse 85 09/20/24 09:50 Resp 18 09/20/24 07:10 BP 121/79 09/20/24 07:10 Pulse Ox 93 L 09/20/24 07:10 FiO2 Intake & Output 09/19/24 09/20/24 09/20/24 18:59 06:59 18:59 Intake Total 720 Output Total 75 Balance 720 -75 Weight 140.614 kg Intake: Oral 720 Output: Drainage 75 Abdomen 75 Other: Voiding Method Toilet Toilet Urinal Urinal # Voids 3 1 # Bowel Movements 2 - Labs CBC & Chem 7: 09/20/24 05:50 09/20/24 05:50 Labs: Abnormal Lab Results - Last 24 Hours (Table) 09/20/24 09/20/24 Range/Units 05:50 05:50 Immature Gran # 0.05 H (0.00-0.04) X 10*3/uL Neutrophils # 7.79 H (1.80-7.70) X 10*3/uL Anion Gap 12.50 H (4.00-12.00) mmol/L BUN 27.7 H (9.0-27.0) mg/dL BUN/Creatinine Ratio 23.08 H (12.00-20.00) Ratio Glucose 160 H (70-110) mg/dL Calcium 8.6 L (8.7-10.3) mg/dL Total Protein 5.7 L (6.2-8.2) g/dL Albumin 3.2 L (3.8-4.9) g/dL Albumin/Globulin Ratio 1.28 L (1.60-3.17) Ratio
--- NOTE | 2024-09-20 14:55 | XR ---
EXAMINATION TYPE: XR abdomen 1V DATE OF EXAM: 09/20/2024 2:48 PM COMPARISON: None. CLINICAL INDICATION: Male, 69 years old with history of Abdominal pain, distention, hypoactive bowel sound, TECHNIQUE: Supine, upright, and left side down lateral decubitus views of the abdomen are obtained. FINDINGS: Mildly distended left upper quadrant small bowel loop could reflect sentinel loop. Right up per quadrant catheter device noted. Gas and fecal material is seen in non-distended colon. There is no visceromegaly, pneumoperitoneum, or abnormal calcification appreciated. The lung bases are clear and the osseous structures are intact. IMPRESSION: Mildly distended left upper quadrant small bowel loop could reflect sentinel loop. [facility], , 09/20/2024 2:52 PM
--- NOTE | 2024-09-20 16:10 | P.PN ---
Subjective Progress Note Date: 09/20/24 Principal diagnosis: Reason for follow-up is perforated appendicitis/peritonitis Patient is a 68-year-old male with a past medical history negative for hypertension and gout presenting to the hospital with right lower quadrant abdominal pain patient has been diagnosed with perforated appendicitis status post laparoscopic appendectomy. On today's evaluation that is 09/20/2024, the patient continues to be afebrile, the patient is on room air and breathing comfortably, the Pt denies having any chest pain or cough, the patient has been complaining some abdominal distention but denies any nausea vomiting did have a large BM which was watery. Patient white count is 9.67 creatinine is 1.2 Objective - Vital Signs Vital signs: Vital Signs Temp 98.3 F 09/20/24 07:10 Pulse 85 09/20/24 09:50 Resp 18 09/20/24 07:10 BP 121/79 09/20/24 07:10 Pulse Ox 93 L 09/20/24 07:10 FiO2 Intake & Output 09/19/24 09/20/24 09/20/24 18:59 06:59 18:59 Intake Total 720 190 Output Total 75 Balance 720 -75 190 Weight 140.614 kg Intake: Oral 720 190 Output: Drainage 75 Abdomen 75 Other: Voiding Method Toilet Toilet Toilet Urinal Urinal Urinal # Voids 3 1 # Bowel Movements 2 - Exam GENERAL DESCRIPTION: An elderly male up in the chair in no distress RESPIRATORY SYSTEM: Unlabored breathing , decreased breath sounds at bases HEART: S1 S2 regular rate and rhythm , ABDOMEN: Soft , mild distention no tenderness EXTREMITIES: No edema feet - Labs CBC & Chem 7: 09/20/24 05:50 09/20/24 05:50 Labs: Abnormal Lab Results - Last 24 Hours (Table) 09/20/24 09/20/24 Range/Units 05:50 05:50 Immature Gran # 0.05 H (0.00-0.04) X 10*3/uL Neutrophils # 7.79 H (1.80-7.70) X 10*3/uL Anion Gap 12.50 H (4.00-12.00) mmol/L BUN 27.7 H (9.0-27.0) mg/dL BUN/Creatinine Ratio 23.08 H (12.00-20.00) Ratio Glucose 160 H (70-110) mg/dL Calcium 8.6 L (8.7-10.3) mg/dL Total Protein 5.7 L (6.2-8.2) g/dL Albumin 3.2 L (3.8-4.9) g/dL Albumin/Globulin Ratio 1.28 L (1.60-3.17) Ratio Assessment and Plan (1) Perforated appendicitis Current Visit: Yes Status: Acute Code(s): K35.32 - AC APPENDICITIS W PERF, LOC PERITONITIS, & GANGR, W/O ABSCS SNOMED Code(s): 42420985 (2) Peritonitis Current Visit: Yes Status: Acute Code(s): K65.9 - PERITONITIS, UNSPECIFIED SNOMED Code(s): 70631919 Plan: 1patient presented to hospital with abdominal pain and this patient has been diagnosed with acute perforated appendicitis status post laparoscopic appendectomy and will need to cover for enteric gram-negative both aerobes and anaerobes. 2patient is afebrile white count has been normal 3patient with currently concern for possible postop ileus being monitored closely by surgery and will continue to treat with Zosyn 3.375 g every 8 hours while inpatient and monitor clinical course closely Dictation was produced using [employer] dictation software. please excuse any grammatical, word or spelling errors. Time with Patient: Less than 30
--- NOTE | 2024-09-20 17:25 | CDI ---
Documentation Clarification Form Date: 09/20/2024 05:02:11 PM From: Dorothy Guardado RN CCDS Phone: [phone] Admit Date: 09/16/2024 08:28:00 PM Patient Name: Mark Nelson Visit Number: [id number] Discharge Date: ATTENTION: The Clinical Documentation Specialists (CDI) and [facility] Coding Staff appreciate your assistance in clarifying documentation. Please respond to the clarification below the line at the bottom and electronically sign. The CDI & [facility] Coding staff will review the response and follow-up if needed. Please note: Queries are made part of the Legal Health Record. If you have any questions, please contact the author of this message via ITS. Doctor: Arturo Valle Postoperative ileus is documented 09/20, Surgical note and the patient had Laparoscopic Appendicitis, 09/17.. Additional clarification is requested regarding the relationship, if any, that exists between the diagnosis and the procedure. History/Risk Factors: Patients Admitting Diagnosis: Acute appendicitis Post-Operative Diagnosis: Acute ruptured appendicitis Procedure performed: Laparoscopic appendectomy Clinical Indicators: 09/20 Abd Pelvis Xray: Mildly distended left upper quadrant small bowel loop could reflect sentinel loop. 09/17 ID consult: Peritonitis: patient presented to hospital with abdominal pain and this patient has been diagnosed with acute perforated appendicitis status post laparoscopic appendectomy and will need to cover for enteric gram-negative both aerobes and anaerobes. 09/18, SX note: Acute ruptured appendicitis 09/19, SX note: Abdomen Soft mildly distended. 09/20 SX note: Complaints of nausea. He feels slightly bloated. Treatment: Encouraged to ambulate, 09/18 09/20 Colace po daily, 09/20 Senokot po bid. 09/20 abdominal xray. What relationship, if any, exists between the diagnosis of Postoperative ileus and the procedure: [ ] Postoperative ileus is not clinically significant and not a complication [ xx ] Postoperative ileus is clinically significant and not a complication [ ] Postoperative ileus is clinically significant and a complication [ ] Other please specify ____ [ ] Unable to determine (Template Last Revised: April 2024) MTDD
[2024-09-20] MEDS: SENNOSIDES 8.6 MG TAB PO SCH (20:13)
[2024-09-21 09:54] LABS: Basophils # (A) 0.04 X 10*3/uL (0.00-0.10); Basophils % (A) 0.5 %; Eosinophils # (A) 0.23 X 10*3/uL (0.04-0.35); Eosinophils % (A) 2.8 %; HCT 39.4 % (39.6-50.0); HGB 13.2 g/dL (13.0-17.0); Lymphocytes # (A) 1.27 X 10*3/uL (0.90-5.00); Lymphocytes % (A) 15.6 %; MCH 31.5 pg (27.0-32.0); MCHC 33.5 g/dL (32.0-37.0); Mean Platelet Volume 10.4 FL (9.5-12.2); Monocytes % (A) 8.6 %; NRBC Per 100 WBC 0 X 10*3/uL (0.00-0.01); Neutrophils # (A) 5.83 X 10*3/uL (1.80-7.70); Neutrophils % (A) 71.6 %; Platelet Count 220 X 10*3/uL (140-440); RBC 4.19 X 10*6/uL (4.40-5.60); RDW 12.2 % (11.5-14.5); WBC 8.14 X 10*3/uL (4.50-10.00)
--- NOTE | 2024-09-21 10:10 | P.PN ---
Subjective Progress Note Date: 09/21/24 Patient feels better today. He had several bowel movements. On exam vital signs appear stable. Abdomen soft. Resolving ileus status post laparoscopic appendectomy for acute perforated appendicitis. Patient continue receive supportive care. Objective - Vital Signs Vital signs: Vital Signs Temp 98.9 F 09/21/24 07:36 Pulse 84 09/21/24 07:51 Resp 16 09/21/24 07:36 BP 130/73 09/21/24 07:36 Pulse Ox 93 L 09/21/24 07:36 FiO2 Intake & Output 09/20/24 09/21/24 09/21/24 18:59 06:59 18:59 Intake Total 190 Output Total 30 60 Balance 190 -30 -60 Intake: Oral 190 Output: Drainage 30 60 Abdomen 30 60 Other: Voiding Method Toilet Toilet Urinal Urinal # Voids 3 2 # Bowel Movements 2 - Labs CBC & Chem 7: 09/21/24 03:35 09/20/24 05:50 Labs: Abnormal Lab Results - Last 24 Hours (Table) 09/21/24 Range/Units 03:35 RBC 4.19 L (4.40-5.60) X 10*6/uL Hct 39.4 L (39.6-50.0) % Immature Gran # 0.07 H (0.00-0.04) X 10*3/uL
[2024-09-21 10:11] LABS: Magnesium 1.9 mg/dL (1.5-2.4)
[2024-09-21 10:21] LABS: ALT 45 U/L (10-49); AST 40 U/L (14-35); Albumin 3.1 g/dL (3.8-4.9); Albumin/Globulin Ratio 1.35 Ratio (1.60-3.17); Alkaline Phosphatase 49 U/L (41-126); Blood Urea Nitrogen 20.2 mg/dL (9.0-27.0); Calcium 8.5 mg/dL (8.7-10.3); Carbon Dioxide 23.4 mmol/L (21.6-31.8); Chloride 104 mmol/L (96-109); Globulin 2.3 g/dL (1.6-3.3); Glucose 126 mg/dL (70-110); Potassium 3.9 mmol/L (3.5-5.5); Sodium 139 mmol/L (135-145); Total Bilirubin 0.8 mg/dL (0.3-1.2); Total Protein 5.4 g/dL (6.2-8.2)
--- NOTE | 2024-09-21 11:42 | P.PN ---
Subjective Progress Note Date: 09/20/24 This is a pleasant 69-year-old male who was recently admitted under general surgery status post appendectomy with acute perforation. Patient is continued on antibiotics and will continue with possible discharge planning in the next 24 to 48 hours per surgery. Patient continues with drain and also continues to have continued output recommend monitoring overnight for decrease in output. Patient is maintained on oxygen although does not wear oxygen outpatient and would recommend weaning FiO2 as tolerated. Encouraged increase activity as tolerated and incentive spirometer use at least 10 times every hour while awake. On exam patient is quite distended and stomach more taut patient is reporting h ad 2 loose stools that were liquidy and watery but nothing consistent, bowel exam reveals hypoactive bowel sounds and would recommend abdominal x-ray with concerns of possible postoperative ileus. Patient is afebrile and maintained on room air and has been using incentive spirometer recommend to increase activity as tolerated and walk around more frequently. Would recommend clear liquids and/or n.p.o. until reevaluation by surgery. Review of systems: Constitutional: No reports of fatigue, fever, or chills Cardiovascular: No reports of chest pain or palpitations Respiratory: No reports of shortness of breath or cough GI: reports of nausea, no reports of vomiting, did have 2 small loose watery stools with increased abdominal distention : No reports of dysuria or retention Neurovascular: No reports of generalized weakness All medications have been reviewed Active Medications PHYSICAL EXAMINATION: GENERAL: The patient is alert and oriented x4, Well developed, well nourished. Obese, elderly appearing HEENT: Pupils are round and equally reacting to light. EOMI. no scleral icterus. No conjunctival pallor. Normocephalic, atraumatic. No pharyngeal erythema. No thyromegaly. CARDIOVASCULAR: S1 and S2 muffled PULMONARY: diminished breath sounds bilaterally with no wheezing or rhonchi noted. ABDOMEN: More taut today. Mildly tender on exam. obese. More-distended, hypo active bowel sounds. No palpable organomegaly. MUSCULOSKELETAL: No joint swelling or deformity. EXTREMITIES: No cyanosis, clubbing, or pedal edema. NEUROLOGICAL: Gross neurological examination did not reveal any focal deficits. Diffuse weakness SKIN: No rashes. Assessment: Abdominal pain with acute ruptured appendicitis, status post laparoscopic appendectomy Abdominal distention with concerns of possible ileus, postoperative Bilateral atelectasis, right more than left Hypertension History of gout History of cholecystectomy Elevated AST, ALT Obesity with a BMI 39.8 GI prophylaxis DVT prophylaxis Full code Plan: Recommend to continue with current medications and management with general surgery as attending. Patient is more distended and taut today with hypoactive bowel sounds. Patient reports he did have 2 semiloose watery stools and there is concern of possible ileus as patient reports he does have some increased abdominal pain. Would recommend n.p.o. and/or clear liquids and to discuss further with surgery Encouraged increased activity as tolerated Will obtain abdominal x-ray Recommend frequent walking and continued incentive spirometer use at least 10 times every hour while awake Follow-up on repeat labs Continue incentive spirometer use at least 10 times every hour while awake We will continue to follow with surgery during hospitalization. Thank you kindly for this consultation. The impression and plan of care has been dictated by Maria A Araiza, nurse practitioner as directed. Dr. Geneva MD I have performed a history and examination and MDM of this patient, discussed the same with the dictator, and agree with the dictator's assessment and plan as written ,documented as a scribe. Based on total visit time, I have performed more than 50% of the visit. Any additional findings or plans will be noted. Objective - Vital Signs Vital signs: Vital Signs Temp 98.3 F 09/20/24 07:10 Pulse 85 09/20/24 09:50 Resp 18 09/20/24 07:10 BP 121/79 09/20/24 07:10 Pulse Ox 93 L 09/20/24 07:10 FiO2 Intake & Output 09/19/24 09/20/24 09/20/24 18:59 06:59 18:59 Intake Total 720 Output Total 75 Balance 720 -75 Weight 140.614 kg Intake: Oral 720 Output: Drainage 75 Abdomen 75 Other: Voiding Method Toilet Toilet Urinal Urinal # Voids 3 1 # Bowel Movements 2 - Labs CBC & Chem 7: 09/21/24 03:35 09/21/24 03:35 Labs: Abnormal Lab Results - Last 24 Hours (Table) 09/20/24 09/20/24 Range/Units 05:50 05:50 Immature Gran # 0.05 H (0.00-0.04) X 10*3/uL Neutrophils # 7.79 H (1.80-7.70) X 10*3/uL Anion Gap 12.50 H (4.00-12.00) mmol/L BUN 27.7 H (9.0-27.0) mg/dL BUN/Creatinine Ratio 23.08 H (12.00-20.00) Ratio Glucose 160 H (70-110) mg/dL Calcium 8.6 L (8.7-10.3) mg/dL Total Protein 5.7 L (6.2-8.2) g/dL Albumin 3.2 L (3.8-4.9) g/dL Albumin/Globulin Ratio 1.28 L (1.60-3.17) Ratio
[2024-09-21] MEDS ORDERED: SENNOSIDES 8.6 MG TAB PO PRN (12:19)
--- NOTE | 2024-09-21 14:39 | P.PN ---
Subjective Progress Note Date: 09/21/24 Principal diagnosis: Reason for follow-up is perforated appendicitis/peritonitis Patient is a 68-year-old male with a past medical history negative for hypertension and gout presenting to the hospital with right lower quadrant abdominal pain patient has been diagnosed with perforated appendicitis status post laparoscopic appendectomy. On today's evaluation that is 09/22/2023, patient did have a temperature of 98.9 F this morning and denies having any chills, patient is on room air and breathing comfortably no chest pain or cough, the patient did not have any miguelito sea vomiting abdominal pain and did have a bowel movement which was loose. Patient white count is 8.14, creatinine is 1.0 Objective - Vital Signs Vital signs: Vital Signs Temp 98.9 F 09/21/24 07:36 Pulse 84 09/21/24 07:51 Resp 16 09/21/24 07:36 BP 130/73 09/21/24 07:36 Pulse Ox 93 L 09/21/24 07:36 FiO2 Intake & Output 09/20/24 09/21/24 09/21/24 18:59 06:59 18:59 Intake Total 190 Output Total 30 60 Balance 190 -30 -60 Intake: Oral 190 Output: Drainage 30 60 Abdomen 30 60 Other: Voiding Method Toilet Toilet Urinal Urinal # Voids 3 2 # Bowel Movements 2 - Exam GENERAL DESCRIPTION: An elderly male up in the chair in no distress RESPIRATORY SYSTEM: Unlabored breathing , decreased breath sounds at bases HEART: S1 S2 regular rate and rhythm , ABDOMEN: Soft , mild distention no tenderness EXTREMITIES: No edema feet - Labs CBC & Chem 7: 09/21/24 03:35 09/21/24 03:35 Labs: Abnormal Lab Results - Last 24 Hours (Table) 09/21/24 09/21/24 Range/Units 03:35 03:35 RBC 4.19 L (4.40-5.60) X 10*6/uL Hct 39.4 L (39.6-50.0) % Immature Gran # 0.07 H (0.00-0.04) X 10*3/uL BUN/Creatinine Ratio 20.20 H (12.00-20.00) Ratio Glucose 126 H (70-110) mg/dL Calcium 8.5 L (8.7-10.3) mg/dL AST 40 H (14-35) U/L Total Protein 5.4 L (6.2-8.2) g/dL Albumin 3.1 L (3.8-4.9) g/dL Albumin/Globulin Ratio 1.35 L (1.60-3.17) Ratio Assessment and Plan (1) Perforated appendicitis Current Visit: Yes Status: Acute Code(s): K35.32 - AC APPENDICITIS W PERF, LOC PERITONITIS, & GANGR, W/O ABSCS SNOMED Code(s): 70800951 (2) Peritonitis Current Visit: Yes Status: Acute Code(s): K65.9 - PERITONITIS, UNSPECIFIED SNOMED Code(s): 86272205 Plan: 1patient presented to hospital with abdominal pain and this patient has been diagnosed with acute perforated appendicitis status post laparoscopic ap pendectomy and will need to cover for enteric gram-negative both aerobes and anaerobes. 2patient is afebrile white count has been normal, will continue to treat with Zosyn 3.375 g every 8 hours while inpatient and transition to oral Ceftin and Flagyl on discharge Dictation was produced using [employer] dictation software. please excuse any grammatical, word or spelling errors. Time with Patient: Less than 30
--- NOTE | 2024-09-21 20:08 | P.PN ---
Subjective Progress Note Date: 09/21/24 This is a pleasant 69-year-old male who was recently admitted under general surgery status post appendectomy with acute perforation. Patient is continued on antibiotics and will continue with possible discharge planning in the next 24 to 48 hours per surgery. Patient continues with drain and also continues to have continued output recommend monitoring overnight for decrease in output. Patient is maintained on oxygen although does not wear oxygen outpatient and would recommend weaning FiO2 as tolerated. Encouraged increase activity as tolerated and incentive spirometer use at least 10 times every hour while awake. On exam patient is quite distended and stomach more taut patient is reporting h ad 2 loose stools that were liquidy and watery but nothing consistent, bowel exam reveals hypoactive bowel sounds and would recommend abdominal x-ray with concerns of possible postoperative ileus. Patient is afebrile and maintained on room air and has been using incentive spirometer recommend to increase activity as tolerated and walk around more frequently. Would recommend clear liquids and/or n.p.o. until reevaluation by surgery. 09/21/2024 Patient is seen in follow-up maintained on clear liquids reports some improvement in abdominal pain although continues to be distended. Patient having multiple loose stools and would recommending continuing with clear liquids and conservative management for possible ileus. General surgery is following with no plans of surgical intervention at this time. Encouraged increased activity as tolerated with frequent walking. Patient is afebrile and will be continued on IV antibiotics and recommend following up on repeat labs. Creatinine is 1.0 and magnesium 1.9, calcium mildly low at 8.5. Review of systems: Constitutional: No reports of fatigue, fever, or chills Cardiovascular: No reports of chest pain or palpitations Respiratory: No reports of shortness of breath or cough GI: reports of nausea, no reports of vomiting, having loose bowel movements reports improvement in abdominal pain : No reports of dysuria or retention Neurovascular: No reports of generalized weakness All medications have been reviewed Active Medications PHYSICAL EXAMINATION: GENERAL: The patient is alert and oriented x4, Well developed, well nourished. Obese, elderly appearing HEENT: Pupils are round and equally reacting to light. EOMI. no scleral icterus. No conjunctival pallor. Normocephalic, atraumatic. No pharyngeal erythema. No thyromegaly. CARDIOVASCULAR: S1 and S2 muffled PULMONARY: diminished breath sounds bilaterally with no wheezing or rhonchi noted. ABDOMEN: Less taut today. Mildly tender on exam. obese. Continues to be somew hat-distended, improved bowel sounds. No palpable organomegaly. MUSCULOSKELETAL: No joint swelling or deformity. EXTREMITIES: No cyanosis, clubbing, or pedal edema. NEUROLOGICAL: Gross neurological examination did not reveal any focal deficits. Diffuse weakness SKIN: No rashes. Assessment: Abdominal pain with acute ruptured appendicitis, status post laparoscopic appendectomy Abdominal distention with concerns of possible ileus, postoperative, improving Bilateral atelectasis, right more than left Hypertension History of gout History of cholecystectomy Elevated AST, ALT Obesity with a BMI 39.8 GI prophylaxis DVT prophylaxis Full code Plan: Recommend to continue with current medications and management with general surgery as attending. Patient continues with some distention although feels slightly improved on abdominal distention today. Patient continues to report semiloose watery stools and will continue clear liquids for now. There is concern of possible ileus and may be resolving. Surgery is following with no plans of surgical intervention at this time Encouraged increased activity as tolerated recommend frequent walking throughout the day Follow-up on repeat labs. Recommend to continue with antibiotics for now. Continue incentive spirometer use at least 10 times every hour while awake We will continue to follow with surgery during hospitalization. Thank you kind ly for this consultation. The impression and plan of care has been dictated by Maria A Araiza, nurse practitioner as directed. Dr. Geneva MD I have performed a history and examination and MDM of this patient, discussed the same with the dictator, and agree with the dictator's assessment and plan as written ,documented as a scribe. Based on total visit time, I have performed more than 50% of the visit. Any additional findings or plans will be noted. Objective - Vital Signs Vital signs: Vital Signs Temp 98.9 F 09/21/24 07:36 Pulse 84 09/21/24 07:51 Resp 16 09/21/24 07:36 BP 130/73 09/21/24 07:36 Pulse Ox 93 L 09/21/24 07:36 FiO2 Intake & Output 09/20/24 09/21/24 09/21/24 18:59 06:59 18:59 Intake Total 190 Output Total 30 60 Balance 190 -30 -60 Intake: Oral 190 Output: Drainage 30 60 Abdomen 30 60 Other: Voiding Method Toilet Toilet Urinal Urinal # Voids 3 2 # Bowel Movements 2 - Labs CBC & Chem 7: 09/21/24 03:35 09/21/24 03:35 Labs: Abnormal Lab Results - Last 24 Hours (Table) 09/21/24 09/21/24 Range/Units 03:35 03:35 RBC 4.19 L (4.40-5.60) X 10*6/uL Hct 39.4 L (39.6-50.0) % Immature Gran # 0.07 H (0.00-0.04) X 10*3/uL BUN/Creatinine Ratio 20.20 H (12.00-20.00) Ratio Glucose 126 H (70-110) mg/dL Calcium 8.5 L (8.7-10.3) mg/dL AST 40 H (14-35) U/L Total Protein 5.4 L (6.2-8.2) g/dL Albumin 3.1 L (3.8-4.9) g/dL Albumin/Globulin Ratio 1.35 L (1.60-3.17) Ratio
[2024-09-22 08:56] LABS: African American GFR (CKD) >90 (>60 ml/min/1.73 sqM); Anion Gap 9 mmol/L; Blood Urea Nitrogen 17 mg/dL (9-20); Calcium 8.9 mg/dL (8.4-10.2); Carbon Dioxide 26 mmol/L (22-30); Chloride 103 mmol/L (98-107); Glucose 113 mg/dL (74-99); Magnesium 1.7 mg/dL (1.6-2.3); Non-African American GFR(CKD) >90 (>60 ml/min/1.73 sqM); Potassium 3.8 mmol/L (3.5-5.1); Sodium 138 mmol/L (137-145)
--- NOTE | 2024-09-22 09:09 | P.PN ---
Subjective Progress Note Date: 09/22/24 Patient feels better. He is having bowel movement and flatus. He did have some drainage at his umbilical trocar site.. The skin suture dehisced. He has had some serous drainage. On exam vital signs are stable. Abdomen is soft. PARMJIT drain shows serous fluid. History of ruptured appendicitis. Patient will continue IV antibiotics. Objective - Vital Signs Vital signs: Vital Signs Temp 98.8 F 09/22/24 07:49 Pulse 76 09/22/24 08:33 Resp 15 09/22/24 07:49 BP 151/72 09/22/24 07:49 Pulse Ox 92 L 09/22/24 07:49 FiO2 Intake & Output 09/21/24 09/22/24 09/22/24 18:59 06:59 18:59 Intake Total 1020 Output Total 100 430 Balance -100 590 Intake: Oral 1020 Output: Drainage 100 30 Abdomen 100 30 Urine 400 Other: # Voids 4 2 # Bowel Movements 2 - Labs CBC & Chem 7: 09/21/24 03:35 09/22/24 07:19 Labs: Abnormal Lab Results - Last 24 Hours (Table) 09/21/24 09/21/24 09/22/24 Range/Units 03:35 03:35 07:19 RBC 4.19 L (4.40-5.60) X 10*6/uL Hct 39.4 L (39.6-50.0) % Immature Gran # 0.07 H (0.00-0.04) X 10*3/uL BUN/Creatinine Ratio 20.20 H (12.00-20.00) Ratio Glucose 126 H 113 H (70-110) mg/dL Calcium 8.5 L (8.7-10.3) mg/dL AST 40 H (14-35) U/L Total Protein 5.4 L (6.2-8.2) g/dL Albumin 3.1 L (3.8-4.9) g/dL Albumin/Globulin Ratio 1.35 L (1.60-3.17) Ratio
--- NOTE | 2024-09-22 10:51 | P.PN ---
Subjective Progress Note Date: 09/22/24 This is a pleasant 69-year-old male who was recently admitted under general surgery status post appendectomy with acute perforation. Patient is continued on antibiotics and will continue with possible discharge planning in the next 24 to 48 hours per surgery. Patient continues with drain and also continues to have continued output recommend monitoring overnight for decrease in output. Patient is maintained on oxygen although does not wear oxygen outpatient and would recommend weaning FiO2 as tolerated. Encouraged increase activity as tolerated and incentive spirometer use at least 10 times every hour while awake. On exam patient is quite distended and stomach more taut patient is reporting h ad 2 loose stools that were liquidy and watery but nothing consistent, bowel exam reveals hypoactive bowel sounds and would recommend abdominal x-ray with concerns of possible postoperative ileus. Patient is afebrile and maintained on room air and has been using incentive spirometer recommend to increase activity as tolerated and walk around more frequently. Would recommend clear liquids and/or n.p.o. until reevaluation by surgery. 09/21/2024 Patient is seen in follow-up maintained on clear liquids reports some improvement in abdominal pain although continues to be distended. Patient having multiple loose stools and would recommending continuing with clear liquids and conservative management for possible ileus. General surgery is following with no plans of surgical intervention at this time. Encouraged increased activity as tolerated with frequent walking. Patient is afebrile and will be continued on IV antibiotics and recommend following up on repeat labs. Creatinine is 1.0 and magnesium 1.9, calcium mildly low at 8.5. 09/22/2024 Patient is seen in follow-up today and there is some apparent drainage leaking around the PARMJIT drain and also some drainage noted at the surgical incision site with general surgery following continuing with local wound care. Patient is having some minimal abdominal pain although denies any worsening. Patient is continued on antibiotics and will continue for now and monitor labs closely. Patient is afebrile with no reports of chest pain or shortness of breath. Continue incentive spirometer use and patient's diet is being advanced to regula r per general surgery. Patient is having bowel movements and reported as diarrhea and loose, will obtain a C. difficile to rule out as patient has been maintained on antibiotics this entire hospitalization. Continue supportive care and will also recommend walking frequently. Review of systems: Constitutional: No reports of fatigue, fever, or chills Cardiovascular: No reports of chest pain or palpitations Respiratory: No reports of shortness of breath or cough GI: No further reports of nausea, no reports of vomiting, having loose bowel movements reports some minimal abdominal pain : No reports of dysuria or retention Neurovascular: No reports of generalized weakness All medications have been reviewed PHYSICAL EXAMINATION: GENERAL: The patient is alert and oriented x4, Well developed, well nourished. Obese, elderly appearing HEENT: Pupils are round and equally reacting to light. EOMI. no scleral icterus. No conjunctival pallor. Normocephalic, atraumatic. No pharyngeal erythema. No thyromegaly. CARDIOVASCULAR: S1 and S2 muffled PULMONARY: diminished breath sounds bilaterally with no wheezing or rhonchi noted. ABDOMEN: Less taut today. Mildly tender on exam. obese. Continues to be somewhat-distended, improved bowel sounds. No palpable organomegaly. Some leaking around the PARMJIT drain and surgical incision site in the mid abdomen MUSCULOSKELETAL: No joint swelling or deformity. EXTREMITIES: No cyanosis, clubbing, or pedal edema. NEUROLOGICAL: Gross neurological examination did not reveal any focal deficits. Diffuse weakness SKIN: No rashes. Assessment: Abdominal pain with acute ruptured appendicitis, status post laparoscopic appendectomy Abdominal distention with concerns of possible ileus, postoperative, improving Bilateral atelectasis, right more than left Hypertension History of gout History of cholecystectomy Elevated AST, ALT Obesity with a BMI 39.8 GI prophylaxis DVT prophylaxis Full code Plan: Recommend to continue with current medications and management with general surgery as attending. Patient continues with some distention although feels slightly improved on abdominal distention today. Patient continues to report semiloose watery stools and diet is being advanced to regular per surgery. Will obtain C. difficile sampling to rule out. There was concern of possible ileus and may be resolving. Surgery is following with no plans of surgical intervention at this time Nursing staff reporting leaking around the PARMJIT drain as well as surgical abdominal site, being monitored by surgery. Abdominal binder ordered and pending at this time Encouraged increased activity as tolerated recommend frequent walking throughout the day Follow-up on repeat labs. Recommend to continue with antibiotics for now. Continue incentive spirometer use at least 10 times every hour while awake We will continue to follow with surgery during hospitalization. Thank you kindly for this consultation. The impression and plan of care has been dictated by Maria A Araiza, nurse practitioner as directed. Dr. Geneva MD I have performed a history and examination and MDM of this patient, discussed the same with the dictator, and agree with the dictator's assessment and plan as written ,documented as a scribe. Based on total visit time, I have performed more than 50% of the visit. Any additional findings or plans will be noted. Objective - Vital Signs Vital signs: Vital Signs Temp 98.8 F 09/22/24 07:49 Pulse 76 09/22/24 08:33 Resp 15 09/22/24 07:49 BP 151/72 09/22/24 07:49 Pulse Ox 92 L 09/22/24 07:49 FiO2 Intake & Output 09/21/24 09/22/24 09/22/24 18:59 06:59 18:59 Intake Total 1020 Output Total 100 430 Balance -100 590 Intake: Oral 1020 Output: Drainage 100 30 Abdomen 100 30 Urine 400 Other: # Voids 4 2 # Bowel Movements 2 - Labs CBC & Chem 7: 09/21/24 03:35 09/22/24 07:19 Labs: Abnormal Lab Results - Last 24 Hours (Table) 09/22/24 Range/Units 07:19 Glucose 113 H (74-99) mg/dL
[2024-09-22] MEDS: FUROSEMIDE 10 MG/ML 4 ML VIAL IV STA (11:35)
--- NOTE | 2024-09-22 14:56 | P.PN ---
Subjective Progress Note Date: 09/22/24 Principal diagnosis: Reason for follow-up is perforated appendicitis/peritonitis Patient is a 68-year-old male with a past medical history negative for hypertension and gout presenting to the hospital with right lower quadrant abdominal pain patient has been diagnosed with perforated appendicitis status post laparoscopic appendectomy. On today's evaluation that is 09/22/2024, Patient is afebrile patient is currently on room air and denies having any shortness of breath, the patient denies any chest pain or cough, the patient denies any nausea vomiting some abdominal distention and is having bowel movement/diarrhea. Patient did have creatinine 0.81 no CBC was done today Objective - Vital Signs Vital signs: Vital Signs Temp 98.8 F 09/22/24 07:49 Pulse 76 09/22/24 08:33 Resp 15 09/22/24 07:49 BP 151/72 09/22/24 07:49 Pulse Ox 92 L 09/22/24 07:49 FiO2 Intake & Output 09/21/24 09/22/24 09/22/24 18:59 06:59 18:59 Intake Total 1020 Output Total 100 430 Balance -100 590 Intake: Oral 1020 Output: Drainage 100 30 Abdomen 100 30 Urine 400 Other: # Voids 4 2 # Bowel Movements 2 - Exam GENERAL DESCRIPTION: An elderly male up in the chair in no distress RESPIRATORY SYSTEM: Unlabored breathing , decreased breath sounds at bases HEART: S1 S2 regular rate and rhythm , ABDOMEN: Soft , mild distention no tenderness EXTREMITIES: No edema feet - Labs CBC & Chem 7: 09/21/24 03:35 09/22/24 07:19 Labs: Abnormal Lab Results - Last 24 Hours (Table) 09/22/24 Range/Units 07:19 Glucose 113 H (74-99) mg/dL Assessment and Plan (1) Perforated appendicitis Current Visit: Yes Status: Acute Code(s): K35.32 - AC APPENDICITIS W PERF, LOC PERITONITIS, & GANGR, W/O ABSCS SNOMED Code(s): 53002581 (2) Peritonitis Current Visit: Yes Status: Acute Code(s): K65.9 - PERITONITIS, UNSPECIFIED SNOMED Code(s): 00817053 Plan: 1patient presented to hospital with abdominal pain and this patient has been di agnosed with acute perforated appendicitis status post laparoscopic appendectomy and will need to cover for enteric gram-negative both aerobes and anaerobes. 2patient is afebrile white count has been normal, 3patient will continue with Zosyn 3.375 g every 8 hours while inpatient and transition to oral Ceftin and Flagyl on discharge, once cleared by surgery Dictation was produced using [employer] dictation software. please excuse any grammatical, word or spelling errors. Time with Patient: Less than 30
--- NOTE | 2024-09-23 12:31 | P.PN ---
Subjective Progress Note Date: 09/23/24 SURGICAL PROGRESS NOTE CHIEF COMPLAINT: Ruptured appendicitis HISTORY OF PRESENT ILLNESS: Patient is postop day #6 status post laparoscopic appendectomy. Patient reports his pain is controlled. He denies any nausea or vomiting. He is having loose bowel movements. He is having drainage from the umbilical trocar site. Incision was slightly dehisced. PARMJIT drain 50ml serosanguineous in color. Temp 99.9 last night PHYSICAL EXAM: VITAL SIGNS: Reviewed. GENERAL: Well-developed in no acute distress. ABDOMEN: Soft. Mildly distended. Umbilical trocar incision site with serosanguineous drainage. NEUROLOGIC: Alert and oriented. Cranial nerves II through XII grossly intact. ASSESSMENT: 1. Acute ruptured appendicitis 2. Atelectasis PLAN: -Change dressing at umbilical trocar site -Continue antibiotics -Continue pain management -Encourage patient to ambulate -DVT prophylaxis subcu heparin Physician Geochemistry Teacher note has been reviewed by physician. Signing provider agrees with the documented findings, assessment, and plan of care. Objective - Vital Signs Vital signs: Vital Signs Temp 98.7 F 09/23/24 06:18 Pulse 86 09/23/24 08:16 Resp 16 09/23/24 06:18 BP 135/80 09/23/24 06:18 Pulse Ox 93 L 09/23/24 06:18 FiO2 Intake & Output 09/22/24 09/23/24 09/23/24 18:59 06:59 18:59 Output Total 300 50 Balance -300 -50 Output: Drainage 50 Abdomen 50 Urine 300 Other: # Voids 2 # Bowel Movements 1 - Labs CBC & Chem 7: 09/21/24 03:35 09/22/24 07:19
--- NOTE | 2024-09-24 06:36 | P.PN ---
Subjective Progress Note Date: 09/23/24 This is a pleasant 69-year-old male who was recently admitted under general surgery status post appendectomy with acute perforation. Patient is continued on antibiotics and will continue with possible discharge planning in the next 24 to 48 hours per surgery. Patient continues with drain and also continues to have continued output recommend monitoring overnight for decrease in output. Patient is maintained on oxygen although does not wear oxygen outpatient and would recommend weaning FiO2 as tolerated. Encouraged increase activity as tolerated and incentive spirometer use at least 10 times every hour while awake. On exam patient is quite distended and stomach more taut patient is reporting h ad 2 loose stools that were liquidy and watery but nothing consistent, bowel exam reveals hypoactive bowel sounds and would recommend abdominal x-ray with concerns of possible postoperative ileus. Patient is afebrile and maintained on room air and has been using incentive spirometer recommend to increase activity as tolerated and walk around more frequently. Would recommend clear liquids and/or n.p.o. until reevaluation by surgery. 09/21/2024 Patient is seen in follow-up maintained on clear liquids reports some improvement in abdominal pain although continues to be distended. Patient having multiple loose stools and would recommending continuing with clear liquids and conservative management for possible ileus. General surgery is following with no plans of surgical intervention at this time. Encouraged increased activity as tolerated with frequent walking. Patient is afebrile and will be continued on IV antibiotics and recommend following up on repeat labs. Creatinine is 1.0 and magnesium 1.9, calcium mildly low at 8.5. 09/22/2024 Patient is seen in follow-up today and there is some apparent drainage leaking around the PARMJIT drain and also some drainage noted at the surgical incision site with general surgery following continuing with local wound care. Patient is having some minimal abdominal pain although denies any worsening. Patient is continued on antibiotics and will continue for now and monitor labs closely. Patient is afebrile with no reports of chest pain or shortness of breath. Continue incentive spirometer use and patient's diet is being advanced to regula r per general surgery. Patient is having bowel movements and reported as diarrhea and loose, will obtain a C. difficile to rule out as patient has been maintained on antibiotics this entire hospitalization. Continue supportive care and will also recommend walking frequently. 09/23/2024 Patient seen in follow-up currently sitting up in the chair continues to have leaking of the abdominal area with ABD dressings being changed. Patient was given a dose of Lasix yesterday and is maintained on room air continuing to use incentive spirometer. Patient continues to have abdominal fullness and disc omfort and is maintained on antibiotics with infectious disease and general surgery following. Patient has been encouraged to increase activity as tolerated and get up more frequently and walk. Patient not tolerating much oral intake and is maintained on regular diet. Continue with supplements between meals. Review of systems: Constitutional: No reports of fatigue, fever, or chills Cardiovascular: No reports of chest pain or palpitations Respiratory: No reports of shortness of breath or cough GI: No further reports of nausea, no reports of vomiting, having loose bowel movements reports some minimal abdominal pain and continued drainage from his PARMJIT site and abdominal incision : No reports of dysuria or retention Neurovascular: No reports of generalized weakness All medications have been reviewed PHYSICAL EXAMINATION: GENERAL: The patient is alert and oriented x4, Well developed, well nourished. Obese, elderly appearing HEENT: Pupils are round and equally reacting to light. EOMI. no scleral icterus. No conjunctival pallor. Normocephalic, atraumatic. No pharyngeal erythema. No thyromegaly. CARDIOVASCULAR: S1 and S2 muffled PULMONARY: diminished breath sounds bilaterally with no wheezing or rhonchi noted. ABDOMEN: Less taut today. Mildly tender on exam. obese. Continues to be somewhat-distended, improved bowel sounds. No palpable organomegaly. Some leaking around the PARMJIT drain and surgical incision site in the mid abdomen MUSCULOSKELETAL: No joint swelling or deformity. EXTREMITIES: No cyanosis, clubbing, or pedal edema. NEUROLOGICAL: Gross neurological examination did not reveal any focal deficits. Diffuse weakness SKIN: No rashes. Assessment: Abdominal pain with acute ruptured appendicitis, status post laparoscopic appendectomy Abdominal distention with concerns of possible ileus, postoperative, improving Bilateral atelectasis, right more than left Hypertension History of gout History of cholecystectomy Elevated AST, ALT Obesity with a BMI 39.8 GI prophylaxis DVT prophylaxis Full code Plan: Recommend to continue with current medications and management with general surgery as attending. Patient continues with some distention although feels slightly improved on abdominal distention today. Patient continues to report semiloose watery stools and diet is being advanced to regular per surgery. Will obtain C. difficile sampling to rule out. There was concern of possible ileus and may be resolving. Surgery is following with no plans of surgical intervention at this time Nursing staff reporting leaking around the PARMJIT drain as well as surgical abdominal site, being monitored by surgery. Abdominal binder ordered. Encouraged increased activity as tolerated, recommend frequent walking throughout the day Follow-up on repeat labs. Recommend to continue with antibiotics for now. Continue incentive spirometer use at least 10 times every hour while awake We will continue to follow with surgery during hospitalization. Thank you leslie sorto for this consultation. The impression and plan of care has been dictated by Maria A Araiza, Nurse Practitioner as directed. Dr. Nathaniel MD I have performed a history and examination and MDM of this patient, discussed the same with the dictator, and agree with the dictator's assessment and plan as written ,documented as a scribe. Based on total visit time, I have performed more than 50% of the visit. Objective - Vital Signs Vital signs: Vital Signs Temp 98.7 F 09/23/24 06:18 Pulse 86 09/23/24 08:16 Resp 16 09/23/24 06:18 BP 135/80 09/23/24 06:18 Pulse Ox 93 L 09/23/24 06:18 FiO2 Intake & Output 09/22/24 09/23/24 09/23/24 18:59 06:59 18:59 Output Total 300 Balance -300 Output: Urine 300 Other: # Voids 2 # Bowel Movements 1 - Labs CBC & Chem 7: 09/21/24 03:35 09/22/24 07:19
[2024-09-24 08:16] LABS: Basophils # (A) 0.05 X 10*3/uL (0.00-0.10); Basophils % (A) 0.5 %; Eosinophils # (A) 0.16 X 10*3/uL (0.04-0.35); Eosinophils % (A) 1.7 %; HCT 39.5 % (39.6-50.0); HGB 13.6 g/dL (13.0-17.0); Lymphocytes # (A) 1.17 X 10*3/uL (0.90-5.00); Lymphocytes % (A) 12.2 %; MCH 32.7 pg (27.0-32.0); MCHC 34.4 g/dL (32.0-37.0); Mean Platelet Volume 9.9 FL (9.5-12.2); Monocytes # (A) 0.68 X 10*3/uL (0.20-1.00); Monocytes % (A) 7.1 %; NRBC Per 100 WBC 0 X 10*3/uL (0.00-0.01); Neutrophils # (A) 7.46 X 10*3/uL (1.80-7.70); Neutrophils % (A) 77.5 %; Platelet Count 264 X 10*3/uL (140-440); RBC 4.16 X 10*6/uL (4.40-5.60); WBC 9.62 X 10*3/uL (4.50-10.00)
[2024-09-24 08:24] LABS: BUN/Creat Ratio 17.44 Ratio (12.00-20.00); Blood Urea Nitrogen 15.7 mg/dL (9.0-27.0); Chloride 103 mmol/L (96-109); Glucose 119 mg/dL (70-110); Magnesium 1.9 mg/dL (1.5-2.4); Sodium 140 mmol/L (135-145)
[2024-09-24 08:25] LABS: Calcium 8.4 mg/dL (8.7-10.3); Carbon Dioxide 26.2 mmol/L (21.6-31.8)
--- NOTE | 2024-09-24 11:40 | P.PN ---
Subjective Progress Note Date: 09/24/24 SURGICAL PROGRESS NOTE CHIEF COMPLAINT: Ruptured appendicitis HISTORY OF PRESENT ILLNESS: Patient is postop day #7 status post laparoscopic appendectomy. Patient is having less drainage from the umbilicus incision trocar site. He reports his pain is better. He did have 2 bowel movements this morning and is having flatus. Denies any nausea or vomiting. Appetite is slightly improved since yesterday. PARMJIT drain serosanguineous in color. WBC 9.62 PHYSICAL EXAM: VITAL SIGNS: Reviewed. GENERAL: Well-developed in no acute distress. ABDOMEN: Soft. Mildly distended. Umbilical trocar incision site with serosanguineous drainage. NEUROLOGIC: Alert and oriented. Cranial nerves II through XII grossly intact. ASSESSMENT: 1. Acute ruptured appendicitis 2. Atelectasis PLAN: -Anticipate discharge possibly tomorrow -Continue to monitor drainage from umbilical trocar site -Continue antibiotics -Continue pain management -Encourage patient to ambulate -DVT prophylaxis subcu heparin Physician [employer] note has been reviewed by physician. Signing provider agrees with the documented findings, assessment, and plan of care. Objective - Vital Signs Vital signs: Vital Signs Temp 98.1 F 09/24/24 07:02 Pulse 97 09/24/24 07:02 Resp 17 09/24/24 07:02 BP 131/76 09/24/24 07:02 Pulse Ox 94 L 09/24/24 07:02 FiO2 Intake & Output 09/23/24 09/24/24 09/24/24 18:59 06:59 18:59 Intake Total 474 Output Total 60 Balance -60 474 Intake: Oral 474 Output: Drainage 60 Abdomen 60 Other: Voiding Method Toilet Toilet Urinal Urinal # Voids 1 5 - Labs CBC & Chem 7: 09/24/24 05:29 09/24/24 05:29 Labs: Abnormal Lab Results - Last 24 Hours (Table) 09/24/24 09/24/24 Range/Units 05:29 05:29 RBC 4.16 L (4.40-5.60) X 10*6/uL Hct 39.5 L (39.6-50.0) % MCH 32.7 H (27.0-32.0) pg Immature Gran # 0.10 H (0.00-0.04) X 10*3/uL Glucose 119 H (70-110) mg/dL Calcium 8.4 L (8.7-10.3) mg/dL
--- NOTE | 2024-09-24 15:09 | P.PN ---
Subjective Progress Note Date: 09/23/24 Principal diagnosis: Reason for follow-up is perforated appendicitis/peritonitis Patient is a 68-year-old male with a past medical history negative for hypertension and gout presenting to the hospital with right lower quadrant abdominal pain patient has been diagnosed with perforated appendicitis status post laparoscopic appendectomy. On today's evaluation that is 09/23/2024, patient has been afebrile, patient is breathing comfortably and is currently on room air, patient denies having any chest pain and cough, patient denies nausea vomiting still having some abdominal discomfort distention but having bowel movement. Patient did not have any lab work today except stool for C. difficile which was negative Objective - Vital Signs Vital signs: Vital Signs Temp 99.9 F H 09/23/24 12:47 Pulse 80 09/23/24 12:47 Resp 18 09/23/24 12:47 BP 145/80 09/23/24 12:47 Pulse Ox 94 L 09/23/24 12:47 FiO2 Intake & Output 09/22/24 09/23/24 09/23/24 18:59 06:59 18:59 Output Total 300 50 Balance -300 -50 Output: Drainage 50 Abdomen 50 Urine 300 Other: # Voids 2 # Bowel Movements 1 - Exam GENERAL DESCRIPTION: An elderly male up in the chair in no distress RESPIRATORY SYSTEM: Unlabored breathing , decreased breath sounds at bases HEART: S1 S2 regular rate and rhythm , ABDOMEN: Soft , mild distention no tenderness EXTREMITIES: No edema feet - Labs CBC & Chem 7: 09/24/24 05:29 09/24/24 05:29 Assessment and Plan (1) Perforated appendicitis Current Visit: Yes Status: Acute Code(s): K35.32 - AC APPENDICITIS W PERF, LOC PERITONITIS, & GANGR, W/O ABSCS SNOMED Code(s): 62987916 (2) Peritonitis Current Visit: Yes Status: Acute Code(s): K65.9 - PERITONITIS, UNSPECIFIED SNOMED Code(s): 93837872 Plan: 1patient presented to hospital with abdominal pain and this patient has been diagnosed with acute perforated appendicitis status post laparoscopic leana endectomy and will need to cover for enteric gram-negative both aerobes and anaerobes. 2patient is afebrile white count has been normal, 3patient currently being treated with Zosyn 3.375 g every 8 hours waiting for improvement in his ileus before discharge Dictation was produced using [email or web address] dictation software. please excuse any grammatical, word or spelling errors. Time with Patient: Less than 30
--- NOTE | 2024-09-24 15:09 | P.PN ---
Subjective Progress Note Date: 09/24/24 Principal diagnosis: Reason for follow-up is perforated appendicitis/peritonitis Patient is a 68-year-old male with a past medical history negative for hypertension and gout presenting to the hospital with right lower quadrant abdominal pain patient has been diagnosed with perforated appendicitis status post laparoscopic appendectomy. On today's evaluation that is 09/24/2024, Patient is afebrile this morning patient denies having any chest pain shortness of breath or cough, the patient is currently on room air, patient mention overall improvement in his abdominal distention and discomfort feeling better no nausea no vomiting stools are slightly firming up. Patient white count is 9.62, creatinine 0.9 Objective - Vital Signs Vital signs: Vital Signs Temp 98.1 F 09/24/24 07:02 Pulse 97 09/24/24 07:02 Resp 17 09/24/24 07:02 BP 131/76 09/24/24 07:02 Pulse Ox 94 L 09/24/24 07:02 FiO2 Intake & Output 09/23/24 09/24/24 09/24/24 18:59 06:59 18:59 Intake Total 474 Output Total 60 Balance -60 474 Intake: Oral 474 Output: Drainage 60 Abdomen 60 Other: Voiding Method Toilet Toilet Urinal Urinal # Voids 1 5 - Exam GENERAL DESCRIPTION: An elderly male up in the chair in no distress RESPIRATORY SYSTEM: Unlabored breathing , decreased breath sounds at bases HEART: S1 S2 regular rate and rhythm , ABDOMEN: Soft , mild distention no tenderness EXTREMITIES: No edema feet - Labs CBC & Chem 7: 09/24/24 05:29 09/24/24 05:29 Labs: Abnormal Lab Results - Last 24 Hours (Table) 09/24/24 09/24/24 Range/Units 05:29 05:29 RBC 4.16 L (4.40-5.60) X 10*6/uL Hct 39.5 L (39.6-50.0) % MCH 32.7 H (27.0-32.0) pg Immature Gran # 0.10 H (0.00-0.04) X 10*3/uL Glucose 119 H (70-110) mg/dL Calcium 8.4 L (8.7-10.3) mg/dL Assessment and Plan (1) Perforated appendicitis Current Visit: Yes Status: Acute Code(s): K35.32 - AC APPENDICITIS W PERF, LOC PERITONITIS, & GANGR, W/O ABSCS SNOMED Code(s): 43818339 (2) Peritonitis Current Visit: Yes Status: Acute Code(s): K65.9 - PERITONITIS, UNSPECIFIED SNOMED Code(s): 09487608 Plan: 1patient presented to hospital with abdominal pain and this patient has been diagnosed with acute perforated appendicitis status post laparoscopic appendectomy and will need to cover for enteric gram-negative both aerobes and anaerobes. 2patient is afebrile white count has been normal, did have improvement in his symptoms/ileus we will keep the patient on Zosyn while inpatient transition to oral antibiotics on discharge Dictation was produced using [employer] dictation software. please excuse any grammatical, word or spelling errors. Time with Patient: Less than 30
[2024-09-25 02:49] VITALS: TEMP 98.3
--- NOTE | 2024-09-25 04:13 | P.PN ---
Subjective Progress Note Date: 09/24/24 This is a pleasant 69-year-old male who was recently admitted under general surgery status post appendectomy with acute perforation. Patient is continued on antibiotics and will continue with possible discharge planning in the next 24 to 48 hours per surgery. Patient continues with drain and also continues to have continued output recommend monitoring overnight for decrease in output. Patient is maintained on oxygen although does not wear oxygen outpatient and would recommend weaning FiO2 as tolerated. Encouraged increase activity as tolerated and incentive spirometer use at least 10 times every hour while awake. On exam patient is quite distended and stomach more taut patient is reporting h ad 2 loose stools that were liquidy and watery but nothing consistent, bowel exam reveals hypoactive bowel sounds and would recommend abdominal x-ray with concerns of possible postoperative ileus. Patient is afebrile and maintained on room air and has been using incentive spirometer recommend to increase activity as tolerated and walk around more frequently. Would recommend clear liquids and/or n.p.o. until reevaluation by surgery. 09/21/2024 Patient is seen in follow-up maintained on clear liquids reports some improvement in abdominal pain although continues to be distended. Patient having multiple loose stools and would recommending continuing with clear liquids and conservative management for possible ileus. General surgery is following with no plans of surgical intervention at this time. Encouraged increased activity as tolerated with frequent walking. Patient is afebrile and will be continued on IV antibiotics and recommend following up on repeat labs. Creatinine is 1.0 and magnesium 1.9, calcium mildly low at 8.5. 09/22/2024 Patient is seen in follow-up today and there is some apparent drainage leaking around the PARMJIT drain and also some drainage noted at the surgical incision site with general surgery following continuing with local wound care. Patient is having some minimal abdominal pain although denies any worsening. Patient is continued on antibiotics and will continue for now and monitor labs closely. Patient is afebrile with no reports of chest pain or shortness of breath. Continue incentive spirometer use and patient's diet is being advanced to regula r per general surgery. Patient is having bowel movements and reported as diarrhea and loose, will obtain a C. difficile to rule out as patient has been maintained on antibiotics this entire hospitalization. Continue supportive care and will also recommend walking frequently. 09/23/2024 Patient seen in follow-up currently sitting up in the chair continues to have leaking of the abdominal area with ABD dressings being changed. Patient was given a dose of Lasix yesterday and is maintained on room air continuing to use incentive spirometer. Patient continues to have abdominal fullness and disc omfort and is maintained on antibiotics with infectious disease and general surgery following. Patient has been encouraged to increase activity as tolerated and get up more frequently and walk. Patient not tolerating much oral intake and is maintained on regular diet. Continue with supplements between meals. 09/24/2024 Patient is seen in follow-up today reports less drainage from the abdominal incision and continues with PARMJIT drain at this time. Patient is on room air with no reports of chest pain or shortness of breath. Patient is reporting improvements in abdominal pain and is tolerating oral intake eating a little better. Patient will continue on IV antibiotics per infectious disease recommendations with discussion of discharge planning in 24 hours Review of systems: Constitutional: No reports of fatigue, fever, or chills Cardiovascular: No reports of chest pain or palpitations Respiratory: No reports of shortness of breath or cough GI: No further reports of nausea, no reports of vomiting, having bowel movements and passing gas, tolerating her oral intake : No reports of dysuria or retention Neurovascular: No reports of generalized weakness All medications have been reviewed PHYSICAL EXAMINATION: GENERAL: The patient is alert and oriented x4, Well developed, well nourished. Obese, elderly appearing HEENT: Pupils are round and equally reacting to light. EOMI. no scleral icterus. No conjunctival pallor. Normocephalic, atraumatic. No pharyngeal erythema. No thyromegaly. CARDIOVASCULAR: S1 and S2 muffled PULMONARY: diminished breath sounds bilaterally with no wheezing or rhonchi noted. ABDOMEN: Less taut today. Mildly tender on exam. obese. Continues to be somewhat-distended, improved bowel sounds. No palpable organomegaly. Some leaking around the PARMJIT drain and surgical incision site in the mid abdomen, but is improving MUSCULOSKELETAL: No joint swelling or deformity. EXTREMITIES: No cyanosis, clubbing, or pedal edema. NEUROLOGICAL: Gross neurological examination did not reveal any focal deficits. Diffuse weakness SKIN: No rashes. Assessment: Abdominal pain with acute ruptured appendicitis, status post laparoscopic appendectomy Abdominal distention with concerns of possible ileus, postoperative, improving Bilateral atelectasis, right more than left, improved and remains on room air Hypertension History of gout History of cholecystectomy Elevated AST, ALT Obesity with a BMI 39.8 GI prophylaxis DVT prophylaxis Full code Plan: Recommend to continue with current medications and management with general surgery as attending. Nursing staff reporting leaking around the PARMJIT drain as well as surgical abdominal site, being monitored by surgery. Abdominal binder ordered. Drainage from the abdominal incision and PARMJIT are improving Encouraged increased activity as tolerated, recommend frequent walking throughout the day Follow-up on repeat labs. Recommend to continue with antibiotics for now. White count has normalized and patient remains afebrile Continue incentive spirometer use at least 10 times every hour while awake Discussion of discharge planning in 24 hours per surgery. Patient is medically stable once cleared by surgery and infectious disease. We will continue to follow with surgery during hospitalization. Thank you kindly for this consultation. The impression and plan of care has been dictated by Maria A Araiza, Nurse Practitioner as directed. Dr. Nathaniel MD I have performed a history and examination and MDM of this patient, discussed the same with the dictator, and agree with the dictator's assessment and plan as written ,documented as a scribe. Based on total visit time, I have performed more than 50% of the visit. Objective - Vital Signs Vital signs: Vital Signs Temp 98.1 F 09/24/24 07:02 Pulse 97 09/24/24 07:02 Resp 17 09/24/24 07:02 BP 131/76 09/24/24 07:02 Pulse Ox 94 L 09/24/24 07:02 FiO2 Intake & Output 09/23/24 09/24/24 09/24/24 18:59 06:59 18:59 Intake Total 474 Output Total 60 Balance -60 474 Intake: Oral 474 Output: Drainage 60 Abdomen 60 Other: Voiding Method Toilet Urinal # Voids 1 5 - Labs CBC & Chem 7: 09/24/24 05:29 09/24/24 05:29 Labs: Abnormal Lab Results - Last 24 Hours (Table) 09/24/24 09/24/24 Range/Units 05:29 05:29 RBC 4.16 L (4.40-5.60) X 10*6/uL Hct 39.5 L (39.6-50.0) % MCH 32.7 H (27.0-32.0) pg Immature Gran # 0.10 H (0.00-0.04) X 10*3/uL Glucose 119 H (70-110) mg/dL Calcium 8.4 L (8.7-10.3) mg/dL
[2024-09-25 08:27] VITALS: BP 130/81; PULSE 84; RESP 17
--- NOTE | 2024-09-25 11:20 | P.DS ---
Providers Date of admission: 09/16/24 20:28 Expected date of discharge: 09/25/24 Attending physician: Arturo Valle Consults: 09/17/24 11:09 Consult Physician Routine Consulting Provider: Juan M Ocampo Consult Reason/Comments: Perforated appendicitis Do you want consulting provider notified?: Yes 09/17/24 11:10 Consult Physician Routine Consulting Provider: Carolin Mccoy Consult Reason/Comments: Medical management Do you want consulting provider notified?: Yes Primary care physician: Tanner Hannon MD Hospital Course: Discharge diagnosis 1. Acute ruptured appendicitis Hospital course This is a 69-year-old male who presented with right lower quadrant pain and was found to have evidence of acute appendicitis. He is status post laparoscopic appendectomy for an acute ruptured appendicitis. Patient did have a mild dehiscence at the umbilical trocar site with drainage. Drainage is decreasing. Patient's pain is controlled. He is tolerating diet. Afebrile. He has been up and ambulating. He is having bowel movements. He is stable for discharge. Patient will be discharged with oral antibiotics. Please refer to chart for any further details. Physician Market Development Trainer note has been reviewed by physician. Signing provider agrees with the documented findings, assessment, and plan of care. Patient Condition at Discharge: Stable Plan - Discharge Summary Discharge Rx Participant: No New Discharge Prescriptions: New HYDROcodone/APAP 5-325MG [[place] 5-325] 1 tab PO Q6HR PRN 3 Days #12 tab PRN Reason: Pain metroNIDAZOLE [Flagyl] 500 mg PO TID 10 Days #30 tab Levofloxacin [Levaquin] 500 mg PO DAILY 10 Days #10 tab Continue Nabumetone [Relafen] 750 mg PO BID allopurinoL [Zyloprim] 300 mg PO DAILY amLODIPine BES/OLMESARTAN MED [amLODIPine BES/OLMESARTAN MED 5-20 mg] 1 tab PO BID Total Beets 2 tab PO BID Fish Oil 2700mg 2 cap PO HS Tamsulosin [Flomax] 0.4 mg PO HS Collagen Capsule(Unknown Dose) 1 cap PO HS Turmeric Root Extract [Turmeric] 500 mg PO HS Super Beta Prostate 1 tab PO HS Multivit-Min/FA/Lycopen/Lutein [Centrum Silver Tablet] 1 tab PO DAILY Discharge Medication List Collagen Capsule(Unknown Dose) 1 cap PO HS 09/16/24 [History] Fish Oil 2700mg 2 cap PO HS 09/16/24 [History] Multivit-Min/FA/Lycopen/Lutein [Centrum Silver Tablet] 1 tab PO DAILY 09/16/24 [History] Nabumetone [Relafen] 750 mg PO BID 09/16/24 [History] Super Beta Prostate 1 tab PO HS 09/16/24 [History] Tamsulosin [Flomax] 0.4 mg PO HS 09/16/24 [History] Total Beets 2 tab PO BID 09/16/24 [History] Turmeric Root Extract [Turmeric] 500 mg PO HS 09/16/24 [History] allopurinoL [Zyloprim] 300 mg PO DAILY 09/16/24 [History] amLODIPine BES/OLMESARTAN MED [amLODIPine BES/OLMESARTAN MED 5-20 mg] 1 tab PO BID 09/16/24 [History] HYDROcodone/APAP 5-325MG [[place] 5-325] 1 tab PO Q6HR PRN 3 Days #12 tab 09/25/24 [Rx] Levofloxacin [Levaquin] 500 mg PO DAILY 10 Days #10 tab 09/25/24 [Rx] metroNIDAZOLE [Flagyl] 500 mg PO TID 10 Days #30 tab 09/25/24 [Rx] Follow up Appointment(s)/Referral(s): Tanner Hannon MD [Primary Care Provider] - 1-2 days Arturo Valle MD [STAFF PHYSICIAN] - 10/08/24 2:10 pm Patient Instructions/Handouts: Laparoscopic Appendectomy (DC) Activity/Diet/Wound Care/Special Instructions: No driving while taking [place] No lifting over 10 pounds Shower daily. No soaking or tub baths for 2 weeks Very light activity until you are reevaluated at your follow up appointment with your surgeon Discharge Disposition: HOME SELF-CARE
--- NOTE | 2024-09-26 06:04 | P.PN ---
Subjective Progress Note Date: 09/25/24 This is a pleasant 69-year-old male who was recently admitted under general surgery status post appendectomy with acute perforation. Patient is continued on antibiotics and will continue with possible discharge planning in the next 24 to 48 hours per surgery. Patient continues with drain and also continues to have continued output recommend monitoring overnight for decrease in output. Patient is maintained on oxygen although does not wear oxygen outpatient and would recommend weaning FiO2 as tolerated. Encouraged increase activity as tolerated and incentive spirometer use at least 10 times every hour while awake. On exam patient is quite distended and stomach more taut patient is reporting h ad 2 loose stools that were liquidy and watery but nothing consistent, bowel exam reveals hypoactive bowel sounds and would recommend abdominal x-ray with concerns of possible postoperative ileus. Patient is afebrile and maintained on room air and has been using incentive spirometer recommend to increase activity as tolerated and walk around more frequently. Would recommend clear liquids and/or n.p.o. until reevaluation by surgery. 09/21/2024 Patient is seen in follow-up maintained on clear liquids reports some improvement in abdominal pain although continues to be distended. Patient having multiple loose stools and would recommending continuing with clear liquids and conservative management for possible ileus. General surgery is following with no plans of surgical intervention at this time. Encouraged increased activity as tolerated with frequent walking. Patient is afebrile and will be continued on IV antibiotics and recommend following up on repeat labs. Creatinine is 1.0 and magnesium 1.9, calcium mildly low at 8.5. 09/22/2024 Patient is seen in follow-up today and there is some apparent drainage leaking around the PARMJIT drain and also some drainage noted at the surgical incision site with general surgery following continuing with local wound care. Patient is having some minimal abdominal pain although denies any worsening. Patient is continued on antibiotics and will continue for now and monitor labs closely. Patient is afebrile with no reports of chest pain or shortness of breath. Continue incentive spirometer use and patient's diet is being advanced to regula r per general surgery. Patient is having bowel movements and reported as diarrhea and loose, will obtain a C. difficile to rule out as patient has been maintained on antibiotics this entire hospitalization. Continue supportive care and will also recommend walking frequently. 09/23/2024 Patient seen in follow-up currently sitting up in the chair continues to have leaking of the abdominal area with ABD dressings being changed. Patient was given a dose of Lasix yesterday and is maintained on room air continuing to use incentive spirometer. Patient continues to have abdominal fullness and disc omfort and is maintained on antibiotics with infectious disease and general surgery following. Patient has been encouraged to increase activity as tolerated and get up more frequently and walk. Patient not tolerating much oral intake and is maintained on regular diet. Continue with supplements between meals. 09/24/2024 Patient is seen in follow-up today reports less drainage from the abdominal incision and continues with PARMJIT drain at this time. Patient is on room air with no reports of chest pain or shortness of breath. Patient is reporting improvements in abdominal pain and is tolerating oral intake eating a little better. Patient will continue on IV antibiotics per infectious disease recommendations with discussion of discharge planning in 24 hours 09/25/2024 Patient is seen in follow-up today with no acute overnight issues noted. PARMJIT drain is being removed as there is less output noted per general surgery. Patient to continue with monitoring incision site for any further drainage. Patient reports to feeling improved and has been cleared for discharge by general surgery. Patient will continue on a short course of oral antibiotics on discharge and would recommend close outpatient follow-up. Patient is afebrile with no reports of chest pain or shortness of breath. Patient is tolerating diet with no reported nausea or vomiting. Patient is having bowel movements. Encouraged patient to continue with incentive spirometer use and take home and continue to use. Patient is medically stable once cleared by general surgery. Review of systems: Constitutional: No reports of fatigue, fever, or chills Cardiovascular: No reports of chest pain or palpitations Respiratory: No reports of shortness of breath or cough GI: No further reports of nausea, no reports of vomiting, having bowel movements and passing gas, tolerating her oral intake : No reports of dysuria or retention Neurovascular: No reports of generalized weakness All medications have been reviewed PHYSICAL EXAMINATION: GENERAL: The patient is alert and oriented x4, Well developed, well nourished. Obese, elderly appearing HEENT: Pupils are round and equally reacting to light. EOMI. no scleral icterus. No conjunctival pallor. Normocephalic, atraumatic. No pharyngeal erythema. No thyromegaly. CARDIOVASCULAR: S1 and S2 muffled PULMONARY: diminished breath sounds bilaterally with no wheezing or rhonchi noted. ABDOMEN: Less taut today. Mildly tender on exam. obese, improved bowel sounds. No palpable organomegaly. PARMJIT drains removed MUSCULOSKELETAL: No joint swelling or deformity. EXTREMITIES: No cyanosis, clubbing, or pedal edema. NEUROLOGICAL: Gross neurological examination did not reveal any focal deficits. Diffuse weakness SKIN: No rashes. Assessment: Abdominal pain with acute ruptured appendicitis, status post laparoscopic appendectomy Abdominal distention with concerns of possible ileus, postoperative, improving Bilateral atelectasis, right more than left, improved and remains on room air Hypertension History of gout History of cholecystectomy Elevated AST, ALT Obesity with a BMI 39.8 GI prophylaxis DVT prophylaxis Full code Plan: Recommend to continue with current medications and management with general surgery as attending. Plan is for discharge today and patient is medically stable once cleared by surgery PARMJIT drain is being removed and recommend monitoring closely for any further drainage from the surgical site. Instructed patient to follow-up with general surgery in 1 week Encouraged increased activity as tolerated, recommend frequent walking thro ughout the day Continue with antibiotics per surgery recommendations Continue incentive spirometer use at least 10 times every hour while awake. Instructed patient to take home and continue using Patient is medically stable once cleared by infectious disease and surgery We will continue to follow with surgery during hospitalization. Thank you kindly for this consultation. The impression and plan of care has been dictated by Maria A Araiza, Nurse Practitioner as directed. Dr. Nathaniel MD I have performed a history and examination and MDM of this patient, discussed the same with the dictator, and agree with the dictator's assessment and plan as written ,documented as a scribe. Based on total visit time, I have performed more than 50% of the visit. Objective - Vital Signs Vital signs: Vital Signs Temp 98.3 F 09/25/24 08:00 Pulse 84 09/25/24 08:00 Resp 17 09/25/24 08:00 BP 130/81 09/25/24 08:00 Pulse Ox 95 09/25/24 08:00 FiO2 Intake & Output 09/24/24 09/25/24 09/25/24 18:59 06:59 18:59 Intake Total 710 540 Balance 710 540 Intake: Oral 710 540 Other: Voiding Method Toilet Urinal # Voids 1 3 - Labs CBC & Chem 7: 09/24/24 05:29 09/24/24 05:29
--- NOTE | 2024-09-27 16:29 | P.PN ---
Subjective Progress Note Date: 09/25/24 Principal diagnosis: Reason for follow-up is perforated appendicitis/peritonitis Patient is a 68-year-old male with a past medical history negative for hypertension and gout presenting to the hospital with right lower quadrant abdominal pain patient has been diagnosed with perforated appendicitis status post laparoscopic appendectomy. On today's evaluation that is 09/25/2024,the patient denies any fever or any chills, patient is breathing comfortably on room air, the patient denies chest pain shortness of breath and no significant cough, patient mention improvement abdominal pain as well as distention no nausea no vomiting tolerating his diet feeling better wants to go home. No new lab has been obtained today white count was normal as of yesterday Objective - Vital Signs Vital signs: Vital Signs Temp 98.3 F 09/25/24 08:00 Pulse 84 09/25/24 08:00 Resp 17 09/25/24 08:00 BP 130/81 09/25/24 08:00 Pulse Ox 95 09/25/24 08:00 FiO2 Intake & Output 09/24/24 09/25/24 09/25/24 18:59 06:59 18:59 Intake Total 710 540 654 Output Total 53 Balance 710 540 601 Intake: Oral 710 540 654 Output: Drainage 53 Abdomen 53 Other: Voiding Method Toilet Toilet Urinal # Voids 1 3 - Exam GENERAL DESCRIPTION: An elderly male up in the chair in no distress RESPIRATORY SYSTEM: Unlabored breathing , decreased breath sounds at bases HEART: S1 S2 regular rate and rhythm , ABDOMEN: Soft , mild distention no tenderness EXTREMITIES: No edema feet - Labs CBC & Chem 7: 09/24/24 05:29 09/24/24 05:29 Assessment and Plan (1) Perforated appendicitis Status: Acute Code(s): K35.32 - AC APPENDICITIS W PERF, LOC PERITONITIS, & GANGR, W/O ABSCS SNOMED Code(s): 43687415 (2) Peritonitis Status: Acute Code(s): K65.9 - PERITONITIS, UNSPECIFIED SNOMED Code(s): 89479138 Plan: 1patient presented to hospital with abdominal pain and this patient has been diagnosed with acute perforated appendicitis status post laparoscopic appendectomy and will need to cover for enteric gram-negative both aerobes and anaerobes. 2patient is afebrile white count has been normal, did have improvement in his symptoms/ileus on Zosyn recommending Ceftin and Flagyl on discharge Dictation was produced using [employer] dictation software. please excuse any grammatical, word or spelling errors. Time with Patient: Less than 30
== END 2024-09-25 12:25 | disposition home or self-care (01) | DRG 398 ==
LOC: EC 20:01 → 6NMEDSUR 20:27 → OBSVTOIN 20:28 → 6NMEDSUR 23:52
PROVIDERS: ADMIT Surgery; ATTEND Surgery
PROC: 0DTJ4ZZ Resection of Appendix, Percutaneous Endoscopic Approach (ICD-10-PCS; principal; 2024-09-17 10:00)
DX: K35.32 Acute appendicitis with perforation, localized peritonitis, and gangrene, without abscess (principal); J98.11 Atelectasis; K56.7 Ileus, unspecified; E66.9 Obesity, unspecified; I10 Essential (primary) hypertension; Z68.39 Body mass index [BMI] 39.0-39.9, adult; M10.9 Gout, unspecified; R74.01 Elevation of levels of liver transaminase levels; Z79.1 Long term (current) use of non-steroidal anti-inflammatories (NSAID); Z79.899 Other long term (current) drug therapy; Z87.81 Personal history of (healed) traumatic fracture
CPT/HCPCS: 71045; 74018; 80048; 80053; 83735; 85025; 87324; 88304; 94640; 96361; 96374; 96375; 99285

== ENCOUNTER 2024-10-08 15:07 | Emergency (ER) | payer BC, MEDICARE ==
[2024-10-08 15:41] VITALS: TEMP 101.4
--- NOTE | 2024-10-08 15:46 | ED ---
Abdominal Pain HPI - General Chief Complaint: Abdominal Pain Stated Complaint: Post-op pain Time Seen by Provider: 10/08/24 15:45 Source: patient, RN notes reviewed, old records reviewed Mode of arrival: ambulatory Limitations: no limitations - History of Present Illness Initial Comments: This is a 69-year-old male to the ER for evaluation abdominal pain. Patient has severe fever, recent appendicitis surgery here at this hospital. Pain is severe going on for a week symptoms progressing. Postoperative course unremarkable diet advanced appropriate. Positive bowel movements no diarrhea MD Complaint: abdominal pain -: week(s) Location: diffuse, periumbilical Radiation: epigastric, suprapubic Migration to: epigastric, suprapubic Severity: severe Severity scale (1-10): 9 Quality: cramping, stabbing, aching Consistency: constant Improves With: nothing Worsens With: nothing Associated Symptoms: nausea, vomiting, fever, chills Treatments Prior to Arrival: other - Related Data Home Medications Medication Instructions Recorded Confirmed Collagen Capsule(Unknown Dose) 1 cap PO HS 09/16/24 09/16/24 Fish Oil 2700mg 2 cap PO HS 09/16/24 09/16/24 Multivit-Min/FA/Lycopen/Lutein 1 tab PO DAILY 09/16/24 09/16/24 [Centrum Silver Tablet] Nabumetone [Relafen] 750 mg PO BID 09/16/24 09/16/24 Super Beta Prostate 1 tab PO HS 09/16/24 09/16/24 Tamsulosin [Flomax] 0.4 mg PO HS 09/16/24 09/16/24 Total Beets 2 tab PO BID 09/16/24 09/16/24 Turmeric Root Extract [Turmeric] 500 mg PO HS 09/16/24 09/16/24 allopurinoL [Zyloprim] 300 mg PO DAILY 09/16/24 09/16/24 amLODIPine BES/OLMESARTAN MED 1 tab PO BID 09/16/24 09/16/24 [amLODIPine BES/OLMESARTAN MED 5-20 mg] Previous Rx's Medication Instructions Recorded HYDROcodone/APAP 5-325MG [[place] 1 tab PO Q6HR PRN 3 Days #12 tab 09/25/24 5-325] Levofloxacin [Levaquin] 500 mg PO DAILY 10 Days #10 tab 09/25/24 metroNIDAZOLE [Flagyl] 500 mg PO TID 10 Days #30 tab 09/25/24 Allergies Allergy/AdvReac Type Severity Reaction Status Date / Time No Known Allergies Allergy Verified 09/17/24 10:18 Review of Systems ROS Statement: Those systems with pertinent positive or pertinent negative responses have been documented in the HPI. ROS Other: All systems not noted in ROS Statement are negative. Past Medical History Past Medical History: Hypertension Additional Past Medical History / Comment(s): gout History of Any Multi-Drug Resistant Organisms: None Reported Past Surgical History: Appendectomy, Cholecystectomy Additional Past Surgical History / Comment(s): skull fracture repair, Past Anesthesia/Blood Transfusion Reactions: No Reported Reaction Past Psychological History: No Psychological Hx Reported Smoking Status: Never smoker Past Alcohol Use History: Rare Past Drug Use History: None Reported General Exam Limitations: no limitations General appearance: alert, in no apparent distress Head exam: Present: atraumatic, normocephalic, normal inspection Eye exam: Present: normal appearance, PERRL, EOMI. Absent: scleral icterus, conjunctival injection, periorbital swelling ENT exam: Present: normal exam, mucous membranes moist Neck exam: Present: normal inspection. Absent: tenderness, meningismus, lymphadenopathy Respiratory exam: Present: normal lung sounds bilaterally. Absent: respiratory distress, wheezes, rales, rhonchi, stridor Cardiovascular Exam: Present: regular rate, normal rhythm, normal heart sounds. Absent: systolic murmur, diastolic murmur, rubs, gallop, clicks GI/Abdominal exam: Present: soft, normal bowel sounds. Absent: distended, tenderness, guarding, rebound, rigid Extremities exam: Present: normal inspection, full ROM, normal capillary refill. Absent: tenderness, pedal edema, joint swelling, calf tenderness Back exam: Present: normal inspection Neurological exam: Present: alert, oriented X3, CN II-XII intact Psychiatric exam: Present: normal affect, normal mood Skin exam: Present: warm, dry, intact, normal color. Absent: rash Course Vital Signs 10/08/24 10/08/24 10/08/24 15:38 18:04 19:31 Temperature 101.4 F H Pulse Rate 108 H 77 78 Respiratory 20 18 18 Rate Blood Pressure 90/57 113/81 114/76 O2 Sat by Pulse 95 97 98 Oximetry - Reevaluation(s) Reevaluation #1: 10/08/24 16:47 Medical records reviewed Reevaluation #2: Patient symptoms relatively unchanged here in the ER Reevaluation #3: Patient informed of results questions answered Reevaluation #4: Was pt. sent in by a medical professional or institution (SYDNEE Desir, HAND DEVELOPER, urgent care, hospital, or correction...) When possible be specific @ -no Did you speak to anyone other than the patient for history (EMS, parent, family, police, friend...)? What history was obtained from this source @ -no Did you review nursing and triage notes (agree or disagree)? Why? @ -agree Are old charts reviewed (outside hosp., previous admission, EMS record, old EKG, old radiological studies, urgent care reports/EKG's, correction records)? Report findings @ -yes Differential Diagnosis (chest pain, altered mental status, abdominal pain women, abdominal pain men, vaginal bleeding, weakness, fever, dyspnea, syncope, headache, dizziness, GI bleed, back pain, seizure, CVA, palpatations, mental health, musculoskeletal)? @ -prior EKG interpreted by me (3pts min.). @ -yes X-rays interpreted by me (1pt min.). @ -no CT interpreted by me (1pt min.). @ -Yes positive hepatic abscess U/S interpreted by me (1pt. min.). @ -no What testing was considered but not performed or refused? (CT, X-rays, U/S, labs)? Why? @ -none What meds were considered but not given or refused? Why? @ -none Did you discuss the management of the patient with other professionals (professionals i.e. SYDNEE Desir, HAND DEVELOPER, lab, RT, psych nurse, social media content specialist, clay miner, teacher, senior loan officer, telephonic case manager)? Give summary @ -no Was smoking cessation discussed for >3mins.? @ -no Was critical care preformed (if so, how long)? @ -yes31 Were there social determinants of health that impacted care today? How? (Homelessness, low income, unemployed, alcoholism, drug addiction, transportation, low edu. Level, literacy, decrease access to med. care, assisted, rehab)? @ -none Was there de-escalation of care discussed even if they declined (Discuss DNR or withdrawal of care, Hospice)? DNR status @ -no What co-morbidities impacted this encounter? (DM, HTN, Smoking, COPD, CAD, Ca ncer, CVA, ARF, Chemo, Hep., AIDS, mental health diagnosis, sleep apnea, morbid obesity)? @ -none Was patient admitted / discharged? Hospital course, mention meds given and route, prescriptions, significant lab abnormalities, going to OR and other pertinent info. @ - 69 male with hepatic abscess after significant gallbladder surgery resulting in peritonitis, patient be transferred for IV antibiotics and further surgical evaluation and management Transferred to outside facility for surgical evaluation Undiagnosed new problem with uncertain prognosis? @ -no Drug Therapy requiring intensive monitoring for toxicity (Heparin, Nitro, Insulin, Cardizem)? @ -no Were any procedures done? @ -no Diagnosis/symptom? @ -Fever with acute hepatic abscess Acute, or Chronic, or Acute on Chronic? @ -Acute Uncomplicated (without systemic symptoms) or Complicated (systemic symptoms)? @ -Complicated Side effects of treatment? @ -no Exacerbation, Progression, or Severe Exacerbation? @ -exacerbation Poses a threat to life or bodily function? How? (Chest pain, [place], [place], pneumonia, PE, COPD, DKA, ARF, appy, cholecystitis, CVA, Diverticulitis, Homicidal, Suicidal, threat to staff... and all critical care pts) @ -yes with sepsis Reevaluation #5: Differential Abdominal Pain Men: Appendicitis, cholecystitis, diverticulosis, ischemic bowel, pancreatitis, hepatitis, UTI, gastroenteritis, AAA, incarcerated hernia, bowel obstruction, constipation, inflammatory bowel, hepatitis, peptic ulcer disease, splenic infarction, perforated viscus, testicular torsion, this is not meant to be an all-inclusive list Medical Decision Making - Medical Decision Making 69 male with hepatic abscess after significant gallbladder surgery resulting in peritonitis, patient be transferred for IV antibiotics and further surgical evaluation and management - Lab Data Result diagrams: 10/08/24 16:06 10/08/24 16:06 Lab Results 10/08/24 10/08/24 10/08/24 Range/Units 15:06 16:06 16:06 WBC 14.52 H (4.50-10.00) 10*3/uL RBC 4.41 (4.40-5.60) 10*6/uL Hgb 13.9 (13.0-17.0) g/dL Hct 40.6 (39.6-50.0) % MCV 92.1 (80.0-97.0) fL MCH 31.5 (27.0-32.0) pg MCHC 34.2 (32.0-37.0) g/dL Plt Count 363 D (140-440) 10*3/uL MPV 9.7 (9.5-12.2) fL Immature Gran % (Auto) 0.5 % Neutrophils % 85.5 % Lymphocytes % 5.9 % Monocytes % 7.8 % Eosinophils % 0.0 % Basophils % 0.3 % Immature Gran # 0.07 H (0.00-0.04) 10*3/uL Neutrophils # 12.41 H (1.80-7.70) 10*3/uL Lymphocytes # 0.86 L (0.90-5.00) 10*3/uL Monocytes # 1.13 H (0.20-1.00) 10*3/uL Eosinophils # 0.00 L (0.04-0.35) 10*3/uL Basophils # 0.05 (0.00-0.10) 10*3/uL Sodium 134 L (137-145) mmol/L Potassium 4.4 (3.5-5.1) mmol/L Chloride 99 (98-107) mmol/L Carbon Dioxide 24 (22-30) mmol/L Anion Gap 11 mmol/L BUN 26 H (9-20) mg/dL Creatinine 1.26 H (0.66-1.25) mg/dL Est GFR (CKD-EPI)AfAm 66 (>60 ml/min/1.73 sqM) Est GFR (CKD-EPI)NonAf 57 (>60 ml/min/1.73 sqM) Glucose 127 H (74-99) mg/dL Plasma Lactic Acid Abdulkadir (0.7-2.0) mmol/L Calcium 8.9 (8.4-10.2) mg/dL Total Bilirubin 1.3 (0.2-1.3) mg/dL AST 113 H (17-59) U/L ALT 97 H (4-49) U/L Alkaline Phosphatase 108 (38-126) U/L Total Protein 7.2 (6.3-8.2) g/dL Albumin 3.5 (3.5-5.0) g/dL Amylase 66 (30-110) U/L Lipase 246 (23-300) U/L Urine Color Dark Brown Urine Appearance Turbid (Clear) Urine pH 5.5 (5.0-8.0) Ur Specific [place] 1.032 (1.001-1.035) Urine Protein 2+ H (Negative) Urine Glucose (UA) Trace H (Negative) Urine Ketones Negative (Negative) Urine Blood Negative (Negative) Urine Nitrite Negative (Negative) Urine Bilirubin 1+ H (Negative) Urine Urobilinogen 4.0 (<2.0) mg/dL Ur Leukocyte Esterase Negative (Negative) Urine RBC 5 (0-5) /hpf Urine WBC 31 H (0-5) /hpf Ur Squamous Epith Cells 4 (0-4) /hpf Hyaline Casts 30 H (0-2) /lpf Urine Mucus Many H (None) /hpf 07/08/ Range/Units 16:06 WBC (4.50-10.00) 10*3/uL RBC (4.40-5.60) 10*6/uL Hgb (13.0-17.0) g/dL Hct (39.6-50.0) % MCV (80.0-97.0) fL MCH (27.0-32.0) pg MCHC (32.0-37.0) g/dL Plt Count (140-440) 10*3/uL MPV (9.5-12.2) fL Immature Gran % (Auto) % Neutrophils % % Lymphocytes % % Monocytes % % Eosinophils % % Basophils % % Immature Gran # (0.00-0.04) 10*3/uL Neutrophils # (1.80-7.70) 10*3/uL Lymphocytes # (0.90-5.00) 10*3/uL Monocytes # (0.20-1.00) 10*3/uL Eosinophils # (0.04-0.35) 10*3/uL Basophils # (0.00-0.10) 10*3/uL Sodium (137-145) mmol/L Potassium (3.5-5.1) mmol/L Chloride (98-107) mmol/L Carbon Dioxide (22-30) mmol/L Anion Gap mmol/L BUN (9-20) mg/dL Creatinine (0.66-1.25) mg/dL Est GFR (CKD-EPI)AfAm (>60 ml/min/1.73 sqM) Est GFR (CKD-EPI)NonAf (>60 ml/min/1.73 sqM) Glucose (74-99) mg/dL Plasma Lactic Acid Abdulkadir 1.4 (0.7-2.0) mmol/L Calcium (8.4-10.2) mg/dL Total Bilirubin (0.2-1.3) mg/dL AST (17-59) U/L ALT (4-49) U/L Alkaline Phosphatase (38-126) U/L Total Protein (6.3-8.2) g/dL Albumin (3.5-5.0) g/dL Amylase (30-110) U/L Lipase (23-300) U/L Urine Color Urine Appearance (Clear) Urine pH (5.0-8.0) Ur Specific [place] (1.001-1.035) Urine Protein (Negative) Urine Glucose (UA) (Negative) Urine Ketones (Negative) Urine Blood (Negative) Urine Nitrite (Negative) Urine Bilirubin (Negative) Urine Urobilinogen (<2.0) mg/dL Ur Leukocyte Esterase (Negative) Urine RBC (0-5) /hpf Urine WBC (0-5) /hpf Ur Squamous Epith Cells (0-4) /hpf Hyaline Casts (0-2) /lpf Urine Mucus (None) /hpf - Radiology Data Radiology results: report reviewed (CT abdomen pelvis positive for hepatic abscess), image reviewed Critical Care Time Critical Care Time: Yes Total Critical Care Time: 31 Disposition Clinical Impression: Abdominal colic, Peritonitis, Hepatic abscess, Fever Disposition: OTHER INSTITUTION NOT DEFINED Condition: Serious Is patient prescribed a controlled substance at d/c from ED?: No Referrals: Tanner Hannon MD [Primary Care Provider] - 1-2 days Time of Disposition: 18:00 - Out of Hospital Transfer - Req. Specs Out of Hospital Transfer - Requested Specifics: Other Emergency Center ([facility])
[2024-10-08] MEDS: ONDANSETRON 4 MG/2 ML VIAL IVP STA (16:12)
[2024-10-08] MEDS: SODIUM CHLORIDE 0.9% 1,000 ML IV ONE ×2 (16:13→18:57)
[2024-10-08] MEDS: IBUPROFEN IV 800 MG in SODIUM CHLORIDE 0.9% 250 ML IV ONE (16:13)
[2024-10-08] MEDS: PANTOPRAZOLE 40 MG/10 ML VIAL IVP STA (16:13)
[2024-10-08] MEDS: ACETAMINOPHEN IV (For NPO) 1,000 MG in EMPTY BAG 1 BAG IVPB STA (16:13)
[2024-10-08 16:31] LABS: Basophils # (A) 0.05 10*3/uL (0.00-0.10); Basophils % (A) 0.3 %; Eosinophils # (A) 0.00 10*3/uL (0.04-0.35); Eosinophils % (A) 0.0 %; HCT 40.6 % (39.6-50.0); HGB 13.9 g/dL (13.0-17.0); Lymphocytes # (A) 0.86 10*3/uL (0.90-5.00); Lymphocytes % (A) 5.9 %; MCH 31.5 pg (27.0-32.0); MCHC 34.2 g/dL (32.0-37.0); MCV 92.1 fL (80.0-97.0); Monocytes # (A) 1.13 10*3/uL (0.20-1.00); Monocytes % (A) 7.8 %; Neutrophils # (A) 12.41 10*3/uL (1.80-7.70); Neutrophils % (A) 85.5 %; RBC 4.41 10*6/uL (4.40-5.60); RDW 12.0 % (11.5-14.5); WBC 14.52 10*3/uL (4.50-10.00)
[2024-10-08 16:33] LABS: ALT 97 U/L (4-49); AST 113 U/L (17-59); African American GFR (CKD) 66 (>60 ml/min/1.73 sqM); Albumin 3.5 g/dL (3.5-5.0); Alkaline Phosphatase 108 U/L (38-126); Amylase 66 U/L (30-110); Anion Gap 11 mmol/L; Blood Urea Nitrogen 26 mg/dL (9-20); Calcium 8.9 mg/dL (8.4-10.2); Carbon Dioxide 24 mmol/L (22-30); Chloride 99 mmol/L (98-107); Glucose 127 mg/dL (74-99); Lipase 246 U/L (23-300); Non-African American GFR(CKD) 57 (>60 ml/min/1.73 sqM); Potassium 4.4 mmol/L (3.5-5.1); Sodium 134 mmol/L (137-145); Total Protein 7.2 g/dL (6.3-8.2)
[2024-10-08 16:47] LABS: Platelet Count 363 10*3/uL (140-440)
[2024-10-08 17:06] LABS: Bilirubin,Urine 1+ (Negative); Blood,Urine Negative (Negative); Color,Urine Dark Brown; Glucose,Urine (UA) Trace (Negative); Hyaline Casts,Urine 30 /lpf (0-2); Ketones,Urine Negative (Negative); Leukocyte Esterase,Urine Negative (Negative); Mucus,Urine Many /hpf; Nitrite,Urine Negative (Negative); PH, Urine 5.5 (5.0-8.0); Protein,Urine 2+ (Negative); RBC,Urine 5 /hpf (0-5); Specific Gravity,Urine 1.032 (1.001-1.035); Squamous Epithelial Cell,Urine 4 /hpf (0-4); Urobilinogen,Urine 4.0 mg/dL (<2.0); WBC,Urine 31 /hpf (0-5)
--- NOTE | 2024-10-08 17:26 | CT ---
EXAMINATION TYPE: CT abdomen pelvis w con CT DLP: 2718.4 mGycm, Automated exposure control for dose reduction was used. DATE OF EXAM: 10/08/2024 5:14 PM COMPARISON: Abdominal radiograph 09/20/2024, CT abdomen and pelvis 09/16/2024 CLINICAL INDICATION:Male, 69 years old with history of abdominal pain; abdominal pain post-op appende ctomy TECHNIQUE: Standard CT of the abdomen and pelvis following the administration of 80 cc of Isovue 30 0 IV contrast material. Coronal and sagittal reformats were performed. FINDINGS: LOWER CHEST: Minimal posterior dependent subsegmental atelectasis is noted. Atelectasis within the ri ght lower lobe. ABDOMEN LIVER: Multiloculated gas and fluid collection within the inferior right hepatic lobe measuring gross ly 11.6 x 9.1 cm. GALLBLADDER AND BILE DUCTS: The gallbladder is surgically absent. No biliary ductal dilatation. The p ortal venous system is patent. PANCREAS: Unremarkable. SPLEEN: Unremarkable. ADRENAL GLANDS: Unremarkable. KIDNEYS AND URETERS: No evidence of hydronephrosis. Approximately 3 nonobstructing punctate left daniel l calculi. Nonobstructing right renal 4 mm calculus. The kidneys enhance symmetrically. Right renal l ower pole simple 4.3 cm cyst. No follow up recommended. PELVIS BLADDER: Under distended, limiting evaluation. REPRODUCTIVE: Coarse calcifications of the prostate gland are identified. ABDOMEN & PELVIS STOMACH AND BOWEL: Stomach and duodenum are unremarkable. Scattered distal colonic diverticulosis wit hout evidence for acute diverticulitis. No focal bowel wall thickening. The appendix is not identifie d consistent with reported appendectomy. No evidence of bowel obstruction. PERITONEUM: No evidence of pneumoperitoneum or free fluid. Peritoneal mice. There is some stranding c hanges identified inferior to the right hepatic lobe. VASCULATURE: No evidence of aortic aneurysm. MUSCULOSKELETAL: No acute osseous abnormalities. Degenerative changes of the bilateral SI joints with anterior bridging. Multilevel degenerative disc disease of the thoracolumbar spine. 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 LYMPH NODES: No evidence for lymphadenopathy. SOFT TISSUE/ABDOMINAL WALL: Small fat filled umbilical hernia. IMPRESSION: Multiloculated large gas and fluid collection within the right hepatic lobe consistent with an absces s/abscesses. [facility], , 10/08/2024 5:23 PM
[2024-10-08 18:07] VITALS: RESP 18
[2024-10-08] MEDS ORDERED: VANCOMYCIN IV PER PHARMACY 1 EACH MISC MISCELLANE PRN (18:15)
[2024-10-08] MEDS: PIPERACILLIN-TAZOBACTAM 3.375 GM in SODIUM CHLORIDE 0.9% 100 ML IVPB STA (19:01)
[2024-10-08 19:32] VITALS: BP 114/76; PULSE 78
[2024-10-08] MEDS: VANCOMYCIN 2,000 MG in SODIUM CHLORIDE 0.9% 500 ML 500 ML IVPB ONE (19:33)
[2024-10-09] MEDS ORDERED: VANCOMYCIN 2,000 MG in SODIUM CHLORIDE 0.9% 500 ML 500 ML IVPB SCH (11:00)
== END 2024-10-08 19:32 | disposition other institution (70) ==
LOC: EC 15:07
DX: K65.9 Peritonitis, unspecified (principal); K75.0 Abscess of liver
CPT/HCPCS: 36415; 80053; 82150; 83605; 83690; 85025; 81001; 87040; 87077; 87186; 74177; 99291; 96365; 96375; 96361; J2543; J2405; J0131; J1741; Q9967; J2470